=== PATIENT | female | born 1995 | race Caucasian/White ===

== ENCOUNTER 2021-04-26 14:41 | Emergency (ER) | payer SELFPAY ==
[~2021-04-26] VITALS: Ht 180.3 cm; Wt 52.1 kg
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
[2021-04-26 15:25] LABS: BASOPHILS % (AUTO) 0 % (0-10); EOSINOPHILS % (AUTO) 0 % (0-10); HEMATOCRIT 45 % (35-52); HEMOGLOBIN 15.1 g/dL (11.5-16.0); LYMPHOCYTES # (AUTO) 1.4 X 10^3 (1.0-4.0); LYMPHOCYTES % (AUTO) 15 % (12-44); MEAN CORPUSCULAR HEMOGLOBIN 30 pg (25-34); MEAN CORPUSCULAR HGB CONC 34 g/dL (32-36); MEAN CORPUSCULAR VOLUME 89 fL (80-99); MEAN PLATELET VOLUME 9.7 fL (9.0-12.2); MONOCYTES # (AUTO) 0.5 X 10^3 (0.0-1.0); MONOCYTES % (AUTO) 5 % (0-12); NEUTROPHILS # (AUTO) 7.6 X 10^3 (1.8-7.8); NEUTROPHILS % (AUTO) 80 % (42-75); PLATELET COUNT 232 10^3/uL (130-400); WHITE BLOOD COUNT 9.5 10^3/uL (4.3-11.0)
[2021-04-26 15:29] LABS: ALBUMIN 4.7 GM/DL (3.2-4.5); CHLORIDE 108 MMOL/L (98-107); SODIUM 141 MMOL/L (135-145)
[2021-04-26 15:30] LABS: CALCIUM 9.6 MG/DL (8.5-10.1)
[2021-04-26] MEDS ORDERED: NS IV 1000 ML 1,000 ML IV SCH (15:30)
[2021-04-26] MEDS ORDERED: ONDANSETRON 4 MG/2 ML (SDV) Z0FRAN IVP ONE (15:30)
[2021-04-26 15:31] LABS: GLUCOSE 81 MG/DL (70-105); TOTAL PROTEIN 7.8 GM/DL (6.4-8.2)
[2021-04-26 15:32] LABS: CARBON DIOXIDE 20 MMOL/L (21-32)
[2021-04-26 15:33] LABS: BILIRUBIN,TOTAL 1.6 MG/DL (0.1-1.0)
[2021-04-26 15:35] LABS: ALKALINE PHOSPHATASE 63 U/L (40-136); CREATININE SERUM 0.72 MG/DL (0.60-1.30); GFR ESTIMATED 99
[2021-04-26 15:36] LABS: BUN/CREATININE RATIO 13
[2021-04-26 15:38] LABS: ALANINE AMINOTRANSFERASE 22 U/L (0-55); LIPASE 36 U/L (8-78)
[2021-04-26 15:50] LABS: BILIRUBIN,URINE NEGATIVE (NEGATIVE); CLARITY,URINE CLEAR; COLOR,URINE YELLOW; GLUCOSE, URINE (UA) NEGATIVE (NEGATIVE); KETONES,URINE 1+ (NEGATIVE); LEUKOCYTE ESTERASE ,URINE TRACE (NEGATIVE); NITRITE,URINE NEGATIVE (NEGATIVE); PH,URINE 7.5 (5-9); PROTEIN,URINE NEGATIVE (NEGATIVE)
[2021-04-26 16:00] LABS: BACTERIA,URINE TRACE /HPF
--- NOTE | 2021-04-26 16:19 | Diagnostic Imaging Report ---
PROCEDURE: CT head and CT cervical spine without contrast. TECHNIQUE: Multiple contiguous axial images were obtained through the brain and cervical spine without the use of intravenous contrast. Sagittal and coronal reformations through the cervical spine were then performed. Auto Exposure Controls were utilized during the CT exam to meet ALARA standards for radiation dose reduction. DATE: April 26, 2021. COMPARISON: None. INDICATION: 26-year-old female, head and neck pain. Nausea. FINDINGS: There is no identified skull fracture. The ventricles and cerebral spinal fluid spaces are of normal size and configuration for the patient's age. There is no mass effect or midline shift. There is no acute intracranial hemorrhage. There is no abnormal extra-axial fluid collection. The visualized portions of the paranasal sinuses, mastoid air cells and middle ears are well aerated. There is no identified facet joint subluxation or dislocation. There is no asymmetric widening of the cervical disc spaces. The cervical disc heights are well preserved. CT is limited for assessment of disc pathology as well as additional nonbony causes of pathology in the spinal canal. There is no identified acute fracture of the cervical spine. The visualized portions of the lung apices are clear. IMPRESSION: 1. No identified acute intracranial abnormality. 2. No identified acute abnormality of the cervical spine. Dictated by: Dictated on workstation # [id number]
--- NOTE | 2021-04-26 16:22 | Diagnostic Imaging Report ---
PROCEDURE: CT thoracic spine without contrast. TECHNIQUE: Multiple axial computerized tomography images were obtained from the base of the thoracic spine to the vertex without intravenous contrast. Auto Exposure Controls were utilized during the CT exam to meet ALARA standards for radiation dose reduction. DATE: April 26, 2021. INDICATION: 26-year-old female, back pain. COMPARISON: None. FINDINGS: The alignment of the thoracic spine is unremarkable. There is no identified acute fracture of the thoracic spine. The thoracic disc heights are well preserved. CT is limited for assessment of disc pathology as well as additional non-bony causes of pathology in the spinal canal. The visualized portions of the lungs are clear. IMPRESSION: Unremarkable CT of the thoracic spine. Dictated by: Dictated on workstation # [id number]
[2021-04-26] MEDS ORDERED: KETOROLAC 30 MG/ML VIAL IVP ONE (16:30)
--- NOTE | 2021-04-26 16:37 | Diagnostic Imaging Report ---
INDICATION: Elbow pain. EXAMINATION: Three views were obtained. FINDINGS: The alignment is normal. There is no fracture or dislocation. Soft tissues are unremarkable. IMPRESSION: No acute fracture or dislocation. Dictated by: Dictated on workstation # [id number]
[2021-04-26] MEDS ORDERED: ONDA4TAB11 PO (16:45)
[2021-04-26 17:13] VITALS: BP 103/67
== END 2021-04-26 17:13 | disposition home or self-care (01) ==
LOC: ER 14:43
DX: R11.10 Vomiting, unspecified (principal); M54.6 Pain in thoracic spine; R10.84 Generalized abdominal pain; Z87.81 Personal history of (healed) traumatic fracture; Z32.02 Encounter for pregnancy test, result negative
CPT/HCPCS: 36415; 70450; 72125; 72128; 73080; 80053; 81000; 83690; 84703; 85025

== ENCOUNTER 2021-09-13 13:11 | Emergency (ER) | payer SELFPAY ==
[~2021-09-13] VITALS: Ht 180.3 cm; Wt 49.9 kg
[~2021-09-13 13:11] MED LIST: ONDA4TAB11 PO
--- NOTE | 2021-09-13 13:23 | ED GI ---
General Chief Complaint: Abdominal/GI Problems Stated Complaint: VOMITING/NAUSEA 7 WKS PREG History of Present Illness Date Seen by Provider: Sep 13, 2021 Time Seen by Provider: 13:22 Initial Comments 26-year-old female [id number], who is 7 weeks , with PMH of seizures and PCOS, is here with c/o nausea and vomiting which is severe for the past 2 to 3 days. Patient has been having nausea and vomiting since she found out she was but it has been worsening progressively over the past week. Patient is unable to keep any food down. Denies fever, abdominal pain, diarrhea, chest pain, shortness of breath. Patient feels tired. Patient is scheduled for an ultrasound tomorrow with her OB. Allergies and Home Medications Allergies Coded Allergies: No Known Drug Allergies (Unverified , 04/26/21) Patient Home Medication List Home Medication List Reviewed: Yes Ondansetron (Ondansetron Odt) 4 Mg Tab.rapdis, 4 MG PO TID PRN for NAUSEA/VOMITING-1ST LINE Prescribed by: INESSA GASTON on 04/26/21 7835 Review of Systems Review of Systems Constitutional: dizziness, malaise EENTM: No Symptoms Reported Respiratory: No Symptoms Reported Cardiovascular: No Symptoms Reported Gastrointestinal: Nausea, Poor Appetite, Poor Fluid Intake, Vomiting Genitourinary: No Symptoms Reported Musculoskeletal: no symptoms reported Skin: no symptoms reported Psychiatric/Neurological: No Symptoms Reported Endocrine: No Symptoms Reported Hematologic/Lymphatic: No Symptoms Reported Past Lkptkom-Pbrycr-Pnelmp Hx Patient Social History Tobacco Use?: No Smoking Status: Never a Smoker Smokeless Tobacco Frequency: Never a User Use of E-Cig and/or Vaping Patrick: Never a User Substance use?: No Alcohol Use?: No Pt feels they are or have been: No Physical Exam Vital Signs Vital Signs - First Documented 09/13/21 13:12 Temp 35.1 Pulse 67 Resp 18 B/P (MAP) 107/60 (76) Pulse Ox 100 O2 Delivery Room Air Capillary Refill : Height/Weight/BMI Height: '" Weight: lbs. oz. kg; 16.00 BMI Method: General Appearance: mild distress HEENT: PERRL/EOMI Neck: full range of motion Respiratory: lungs clear Cardiovascular: regular rate, rhythm Gastrointestinal: normal bowel sounds, non tender, soft, no organomegaly, no pulsatile mass Extremities: normal range of motion Back: normal inspection, no CVA tenderness Pelvic: normal external exam Neurologic/Psychiatric: no motor/sensory deficits, alert, normal mood/affect, oriented x 3 Progress/Results/Core Measures Results/Orders Lab Results Laboratory Tests Test 09/13/21 13:15 09/13/21 14:50 Range/Units White Blood Count 9.2 4.3-11.0 10^3/uL Red Blood Count 4.65 3.80-5.11 10^6/uL Hemoglobin 14.1 11.5-16.0 g/dL Hematocrit 40 35-52 % Mean Corpuscular Volume 87 80-99 fL Mean Corpuscular Hemoglobin 30 25-34 pg Mean Corpuscular Hemoglobin Concent 35 32-36 g/dL Red Cell Distribution Width 12.5 10.0-14.5 % Platelet Count 242 130-400 10^3/uL Mean Platelet Volume 9.8 9.0-12.2 fL Immature Granulocyte % (Auto) 0 % Neutrophils (%) (Auto) 73 42-75 % Lymphocytes (%) (Auto) 19 12-44 % Monocytes (%) (Auto) 7 0-12 % Eosinophils (%) (Auto) 0 0-10 % Basophils (%) (Auto) 0 0-10 % Neutrophils # (Auto) 6.7 1.8-7.8 10^3/uL Lymphocytes # (Auto) 1.7 1.0-4.0 10^3/uL Monocytes # (Auto) 0.7 0.0-1.0 10^3/uL Eosinophils # (Auto) 0.0 0.0-0.3 10^3/uL Basophils # (Auto) 0.0 0.0-0.1 10^3/uL Immature Granulocyte # (Auto) 0.0 0.0-0.1 10^3/uL Sodium Level 136 135-145 MMOL/L Potassium Level 3.9 3.6-5.0 MMOL/L Chloride Level 105 98-107 MMOL/L Carbon Dioxide Level 22 21-32 MMOL/L Anion Gap 9 5-14 MMOL/L Blood Urea Nitrogen 7 7-18 MG/DL Creatinine 0.67 0.60-1.30 MG/DL Estimat Glomerular Filtration Rate 124 BUN/Creatinine Ratio 10 Glucose Level 101 70-105 MG/DL Calcium Level 9.6 8.5-10.1 MG/DL Corrected Calcium 9.3 8.5-10.1 MG/DL Magnesium Level 1.9 1.6-2.4 MG/DL Total Bilirubin 1.8 H 0.1-1.0 MG/DL Aspartate Amino Transf (AST/SGOT) 20 5-34 U/L Alanine Aminotransferase (ALT/SGPT) 20 0-55 U/L Alkaline Phosphatase 64 40-136 U/L Total Protein 7.0 6.4-8.2 GM/DL Albumin 4.4 3.2-4.5 GM/DL Urine Color YELLOW Urine Clarity CLEAR Urine pH 6.5 5-9 Urine Specific [place] 1.010 L 1.016-1.022 Urine Protein NEGATIVE NEGATIVE Urine Glucose (UA) NEGATIVE NEGATIVE Urine Ketones 1+ H NEGATIVE Urine Nitrite NEGATIVE NEGATIVE Urine Bilirubin NEGATIVE NEGATIVE Urine Urobilinogen 0.2 < = 1.0 MG/DL Urine Leukocyte Esterase TRACE H NEGATIVE Urine RBC (Auto) NEGATIVE NEGATIVE Urine RBC 0-2 /HPF Urine WBC 10-25 H /HPF Urine Squamous Epithelial Cells 25-50 H /HPF Urine Crystals NONE /LPF Urine Bacteria MODERATE H /HPF Urine Casts NONE /LPF Urine Mucus LARGE H /LPF Urine Other NO /HPF Urine Culture Indicated NO My Orders Orders - ARNOLDO GARCIA MD Cbc With Automated Diff (09/13/21 13:29) Comprehensive Metabolic Panel (09/13/21 13:29) Magnesium (09/13/21 13:29) Ed Iv/Invasive Line Start (09/13/21 13:29) Ns Iv 1000 Ml (Sodium Chloride 0.9%) (09/13/21 13:30) Ondansetron Injection (Zofran Injectio (09/13/21 13:30) Diphenhydramine Injection (Benadryl Inje (09/13/21 13:29) Famotidine Injection (Pepcid Injection) (09/13/21 13:29) Urinalysis (09/13/21 14:44) Ed Iv/Invasive Line Start (09/13/21 15:02) Ns Iv 1000 Ml (Sodium Chloride 0.9%) (09/13/21 15:15) Acetaminophen Tablet/Caplet (Tylenol T (09/13/21 15:02) Promethazine Injection (Phenergan Injec (09/13/21 15:02) Cephalexin Capsule (Keflex Capsule) (09/13/21 16:25) Medications Given in ED Current Medications Medications Dose Ordered Sig/Dorota Route Start Time Stop Time Status Last Admin Dose Admin Ondansetron HCl 4 mg ONCE ONCE IVP 09/13/21 13:30 09/13/21 13:33 DC 09/13/21 13:48 4 MG Vital Signs/I&O 09/13/21 13:12 Temp 35.1 Pulse 67 Resp 18 B/P (MAP) 107/60 (76) Pulse Ox 100 O2 Delivery Room Air Progress Progress Note : Progress Note 1. HYPEREMESIS GRAVIDORUM/ DEHYDRATION: - CBC/ CMP unremarkable - NS IVF bolus x 2 - Zofran iv/ Benadryl 50mg iv / Pepcid 20mg iv STAT. Helped only a little so added Promethazine once only, Pt felt better with this combo and ws able to eat apple sauce, jello, and crackers -Advised 6 mini meals throughout the day, bland soft foods. - Patient has ultrasound scheduled tomorrow with her OB. . Follow-up with [facility] within the next 3 days. -Pyridoxine and doxylamine not available in the ER. Would recommend B complex or pyridoxine -Continue vitamins. -The patient was seen in the ED, and treated appropriately to presentation at a specific point in time. Patient is informed that there is a possibility that disease and illness can evolve and change in acuity rapidly or slowly after patient is discharged from the ER. Precautionary advice given to the patient for immediate return to ER if symptoms worsen or do not resolve, and to seek emergency care sooner rather than later. Pt also advised on the importance of PCP follow up and compliance with management and follow up plan with PCP and/or specialist, as this is part of the management plan. Pt verbally expressed understanding. 2. ACUTE CYSTITIS: - UA is positive for leukocyte esterase, bacteria. -Keflex 500 mg twice daily for 5 days with first tab stat in ER. -Adequate hydration advised. Departure Impression Primary Impression: Hyperemesis Additional Impressions: UTI (urinary tract infection) Qualified Codes: N39.0 - Urinary tract infection, site not specified Dehydration Disposition: HOME, SELF-CARE Condition: Improved Departure-Patient Inst. Referrals: NO,LOCAL PHYSICIAN (PCP/Family) Primary Care Physician Patient Instructions: Urinary Tract Infection, Adult ED, Dehydration, Adult (DC), Nausea and Vomiting of Add. Discharge Instructions: - Patient has ultrasound scheduled tomorrow with her OB. . Follow-up with [facility] within the next 3 days. -Continue vitamins. -The patient was seen in the ED, and treated appropriately to presentation at a specific point in time. Patient is informed that there is a possibility that disease and illness can evolve and change in acuity rapidly or slowly after patient is discharged from the ER. Precautionary advice given to the patient for immediate return to ER if symptoms worsen or do not resolve, and to seek emergency care sooner rather than later. Pt also advised on the importance of PCP follow up and compliance with management and follow up plan with PCP and/or specialist, as this is part of the management plan. Pt verbally expressed understanding. -Keflex 500 mg twice daily for 5 days with first tab stat in ER. -Adequate hydration advised. All discharge instructions reviewed with patient and/or family. Voiced understanding. ARNOLDO GARCIA MD Sep 13, 2021 13:22
[2021-09-13] MEDS ORDERED: diphenhydrAMINE 50 MG/ML INJ (BENADRYL) IVP STA (13:29)
[2021-09-13] MEDS ORDERED: FAMOTIDINE 20MG/2ML IV (PEPCID) IVP STA (13:29)
[2021-09-13] MEDS ORDERED: NS IV 1000 ML 1,000 ML IV SCH ×2 (13:30→15:15)
[2021-09-13] MEDS ORDERED: ONDANSETRON 4 MG/2 ML (SDV) Z0FRAN IVP ONE (13:30)
[2021-09-13 13:35] LABS: BASOPHILS % (AUTO) 0 % (0-10); EOSINOPHILS % (AUTO) 0 % (0-10); HEMATOCRIT 40 % (35-52); HEMOGLOBIN 14.1 g/dL (11.5-16.0); LYMPHOCYTES # (AUTO) 1.7 10^3/uL (1.0-4.0); LYMPHOCYTES % (AUTO) 19 % (12-44); MEAN CORPUSCULAR HEMOGLOBIN 30 pg (25-34); MEAN CORPUSCULAR HGB CONC 35 g/dL (32-36); MEAN CORPUSCULAR VOLUME 87 fL (80-99); MEAN PLATELET VOLUME 9.8 fL (9.0-12.2); MONOCYTES # (AUTO) 0.7 10^3/uL (0.0-1.0); MONOCYTES % (AUTO) 7 % (0-12); NEUTROPHILS # (AUTO) 6.7 10^3/uL (1.8-7.8); NEUTROPHILS % (AUTO) 73 % (42-75); PLATELET COUNT 242 10^3/uL (130-400); WHITE BLOOD COUNT 9.2 10^3/uL (4.3-11.0)
[2021-09-13 13:40] LABS: POTASSIUM 3.9 MMOL/L (3.6-5.0)
[2021-09-13 13:41] LABS: ALBUMIN 4.4 GM/DL (3.2-4.5); BILIRUBIN,TOTAL 1.8 MG/DL (0.1-1.0); CALCIUM 9.6 MG/DL (8.5-10.1); CREATININE SERUM 0.67 MG/DL (0.60-1.30); MAGNESIUM 1.9 MG/DL (1.6-2.4)
[2021-09-13] MEDS ORDERED: PROMETHAZINE INJ 25 MG/ML (PHENERGAN) AMP IVP STA (15:02)
[2021-09-13] MEDS ORDERED: ACETAMINOPHEN 325 MG TABLET PO STA (15:02)
[2021-09-13 15:07] LABS: BILIRUBIN,URINE NEGATIVE (NEGATIVE); CLARITY,URINE CLEAR; COLOR,URINE YELLOW; GLUCOSE, URINE (UA) NEGATIVE (NEGATIVE); KETONES,URINE 1+ (NEGATIVE); LEUKOCYTE ESTERASE ,URINE TRACE (NEGATIVE); NITRITE,URINE NEGATIVE (NEGATIVE); PH,URINE 6.5 (5-9); PROTEIN,URINE NEGATIVE (NEGATIVE)
[2021-09-13 15:20] LABS: BACTERIA,URINE MODERATE /HPF; RBC,URINE 0-2 /HPF; SQUAMOUS EPITHELIAL CELL,UR 25-50 /HPF; URINE OTHER NO /HPF
[2021-09-13] MEDS ORDERED: CEPHALEXIN 250 MG (KEFLEX) CAP PO STA (16:25)
[2021-09-13 16:45] VITALS: BP 111/86
== END 2021-09-13 16:45 | disposition home or self-care (01) ==
LOC: EDUNIT# 13:11 → ER FS 13:13
DX: O21.1 Hyperemesis gravidarum with metabolic disturbance (principal); O23.41 Unspecified infection of urinary tract in pregnancy, first trimester; Z3A.01 Less than 8 weeks gestation of pregnancy
CPT/HCPCS: 36415; 80053; 81000; 83735; 85025; 87088

== ENCOUNTER 2021-09-15 10:33 | Emergency (ER) | payer SELFPAY ==
[~2021-09-15] VITALS: Ht 180.3 cm; Wt 49.9 kg
--- NOTE | 2021-09-15 11:06 | ED General ---
General Chief Complaint: Abdominal/GI Problems Stated Complaint: VOMITING AND SYNCOPAL EPISODES Nursing Triage Note: PT AMBULATE TO ROOM FS06 WITH C/O N/V. PT STATES SHE STARTED VOMITING YESTERDAY AND "HAS NOT STOPPED". PT REPORTS SHE IS X8 WEEKS . PT REPORTS SHE HAS NOT TAKEN ANY ZOFRAN TODAY. Source of Information: Patient Exam Limitations: No Limitations History of Present Illness Date Seen by Provider: Sep 15, 2021 Time Seen by Provider: 10:41 Initial Comments 26yoF with PMH of PCOS that is roughly 8 weeks coming in due to nausea and nb/nb vomiting with abdominal discomfort. This has been going on since Tuesday when she came to the ER here. She was given antibiotics, zofran, and IV fluids. Now she feels similar to that time. Has not been eating and drinking well due to the nausea. Otherwise denying any other acute complaints. Had a formal ultrasound yesterday and her was normal and intrauterine. She did have an ovarian cyst on the left with a small amount of free fluid on that side. Denies vaginal discharge or bleeding. Allergies and Home Medications Allergies Coded Allergies: No Known Drug Allergies (Unverified , 04/26/21) Patient Home Medication List Home Medication List Reviewed: Yes Ondansetron (Ondansetron Odt) 4 Mg Tab.rapdis, 4 MG PO TID PRN for NAUSEA/VOMITING-1ST LINE Prescribed by: INESSA GASTON on 04/26/21 1645 Ondansetron (Ondansetron Odt) 4 Mg Tab.rapdis, 4 MG PO Q6H PRN for NAUSEA/VOMITING-1ST LINE Prescribed by: NICOL VOGEL on 09/15/21 1219 Promethazine HCl (Promethazine Tablet) 25 Mg Tablet, 25 MG PO Q6H PRN for NAUSEA/VOMITING-2ND LINE Prescribed by: NICOL VOGEL on 09/15/21 1219 Promethazine HCl (Promethazine Suppository) 25 Mg Supp.rect, 25 MG RC Q6H PRN for NAUSEA/VOMITING-3RD LINE Prescribed by: NICOL VOGEL on 09/15/21 1219 Review of Systems Review of Systems Constitutional: No chills, No fever EENTM: No blurred vision Respiratory: No cough Cardiovascular: No chest pain Gastrointestinal: abdominal pain; No diarrhea; nausea, vomiting Genitourinary: no symptoms reported Expected Date of Delivery: May 03, 2022 Musculoskeletal: no symptoms reported Skin: no symptoms reported Psychiatric/Neurological: No Symptoms Reported Hematologic/Lymphatic: No Symptoms Reported Immunological/Allergic: no symptoms reported All Other Systems Reviewed Negative Unless Noted: Yes Past Nmrdugk-Uogqmh-Kuenfz Hx Patient Social History Tobacco Use?: No Smoking Status: Never a Smoker Smokeless Tobacco Frequency: Never a User Use of E-Cig and/or Vaping dev: No Use of E-Cig and/or Vaping Patrick: Never a User Substance use?: No Alcohol Use?: No Pt feels they are or have been: No Past Medical History Expected Date of Delivery: May 03, 2022 Last Menstrual Period: Jul 29, 2021 Physical Exam Vital Signs Vital Signs - First Documented 09/15/21 09/15/21 10:39 12:37 Temp 37.0 Pulse 77 Resp 14 B/P (MAP) 108/65 (79) Pulse Ox 100 O2 Delivery Room Air Capillary Refill : Less Than 3 Seconds Height, Weight, BMI Height: '" Weight: lbs. oz. kg; 15.00 BMI Method: General Appearance: No Apparent Distress, WD/WN Eyes: Bilateral Eye Normal Inspection HEENT: PERRL/EOMI, Normal ENT Inspection, Pharynx Normal Neck: Full Range of Motion, Normal Inspection, Non Tender, Supple Respiratory: Chest Non Tender, Lungs Clear, Normal Breath Sounds, No Accessory Muscle Use, No Respiratory Distress Cardiovascular: Regular Rate, Rhythm, No Edema, Normal Peripheral Pulses Gastrointestinal: Normal Bowel Sounds, Non Tender, Soft; No Distended, No Guarding Back: Normal Inspection, No CVA Tenderness, No Vertebral Tenderness Extremity: Normal Capillary Refill, Normal Inspection, Normal Range of Motion, Non Tender, No Calf Tenderness Neurologic/Psychiatric: Alert, No Motor/Sensory Deficits, Normal Mood/Affect Skin: Normal Color, Warm/Dry Lymphatic: No Adenopathy Progress/Results/Core Measures Suspected Sepsis SIRS Temperature: Pulse: 77 Respiratory Rate: 14 Laboratory Tests 09/15/21 11:25: White Blood Count 7.0 Blood Pressure 108 /65 Mean: 79 Laboratory Tests 09/15/21 11:25: Creatinine 0.61, Platelet Count 219, Total Bilirubin 0.6 Results/Orders Lab Results Laboratory Tests Test 09/15/21 11:25 09/15/21 12:22 Range/Units White Blood Count 7.0 4.3-11.0 10^3/uL Red Blood Count 4.51 3.80-5.11 10^6/uL Hemoglobin 13.5 11.5-16.0 g/dL Hematocrit 39 35-52 % Mean Corpuscular Volume 87 80-99 fL Mean Corpuscular Hemoglobin 30 25-34 pg Mean Corpuscular Hemoglobin Concent 35 32-36 g/dL Red Cell Distribution Width 12.5 10.0-14.5 % Platelet Count 219 130-400 10^3/uL Mean Platelet Volume 9.7 9.0-12.2 fL Immature Granulocyte % (Auto) 0 % Neutrophils (%) (Auto) 72 42-75 % Lymphocytes (%) (Auto) 18 12-44 % Monocytes (%) (Auto) 9 0-12 % Eosinophils (%) (Auto) 1 0-10 % Basophils (%) (Auto) 0 0-10 % Neutrophils # (Auto) 5.0 1.8-7.8 10^3/uL Lymphocytes # (Auto) 1.3 1.0-4.0 10^3/uL Monocytes # (Auto) 0.6 0.0-1.0 10^3/uL Eosinophils # (Auto) 0.0 0.0-0.3 10^3/uL Basophils # (Auto) 0.0 0.0-0.1 10^3/uL Immature Granulocyte # (Auto) 0.0 0.0-0.1 10^3/uL Sodium Level 138 135-145 MMOL/L Potassium Level 3.9 3.6-5.0 MMOL/L Chloride Level 105 98-107 MMOL/L Carbon Dioxide Level 24 21-32 MMOL/L Anion Gap 9 5-14 MMOL/L Blood Urea Nitrogen 7 7-18 MG/DL Creatinine 0.61 0.60-1.30 MG/DL Estimat Glomerular Filtration Rate 127 BUN/Creatinine Ratio 11 Glucose Level 96 70-105 MG/DL Calcium Level 9.3 8.5-10.1 MG/DL Corrected Calcium 9.1 8.5-10.1 MG/DL Total Bilirubin 0.6 0.1-1.0 MG/DL Aspartate Amino Transf (AST/SGOT) 20 5-34 U/L Alanine Aminotransferase (ALT/SGPT) 21 0-55 U/L Alkaline Phosphatase 60 40-136 U/L Total Protein 6.6 6.4-8.2 GM/DL Albumin 4.2 3.2-4.5 GM/DL Lipase 51 8-78 U/L Urine Color YELLOW Urine Clarity CLEAR Urine pH 7.0 5-9 Urine Specific Maiden 1.010 L 1.016-1.022 Urine Protein NEGATIVE NEGATIVE Urine Glucose (UA) 3+ H NEGATIVE Urine Ketones NEGATIVE NEGATIVE Urine Nitrite NEGATIVE NEGATIVE Urine Bilirubin NEGATIVE NEGATIVE Urine Urobilinogen 0.2 < = 1.0 MG/DL Urine Leukocyte Esterase NEGATIVE NEGATIVE Urine RBC (Auto) NEGATIVE NEGATIVE Urine RBC NONE /HPF Urine WBC NONE /HPF Urine Squamous Epithelial Cells 0-2 /HPF Urine Crystals NONE /LPF Urine Bacteria NEGATIVE /HPF Urine Casts NONE /LPF Urine Mucus NEGATIVE /LPF Urine Culture Indicated NO My Orders Orders - NICOL VOGEL MD Cbc With Automated Diff (09/15/21 11:07) Comprehensive Metabolic Panel (09/15/21 11:07) Lipase (09/15/21 11:07) D5 Lr Iv Solution (Dextrose 5%/Lactated (09/15/21 11:07) Lactated Ringers (Lr 1000 Ml Iv Solution (09/15/21 11:07) Ondansetron Injection (Zofran Injectio (09/15/21 11:15) Famotidine Injection (Pepcid Injection) (09/15/21 11:15) Acetaminophen Tablet (Tylenol Tablet) (09/15/21 11:15) Promethazine Injection (Phenergan Injec (09/15/21 11:15) Ua Culture If Indicated (09/15/21 11:17) Ed Iv/Invasive Line Start (09/15/21 11:28) Medications Given in ED Current Medications Medications Dose Ordered Sig/Dorota Route Start Time Stop Time Status Last Admin Dose Admin Acetaminophen 1,000 mg ONCE ONCE PO 09/15/21 11:15 09/15/21 11:16 DC 09/15/21 11:19 1,000 MG Famotidine 20 mg ONCE ONCE IVP 09/15/21 11:15 09/15/21 11:16 DC 09/15/21 11:19 20 MG Ondansetron HCl 4 mg ONCE ONCE IVP 09/15/21 11:15 09/15/21 11:16 DC 09/15/21 11:19 4 MG Promethazine HCl 25 mg ONCE ONCE IVP 09/15/21 11:15 09/15/21 11:16 DC 09/15/21 11:19 25 MG Vital Signs/I&O 09/15/21 09/15/21 10:39 12:37 Temp 37.0 36.5 Pulse 77 72 Resp 14 15 B/P (MAP) 108/65 (79) 119/73 Pulse Ox 100 O2 Delivery Room Air Room Air Capillary Refill : Less Than 3 Seconds Blood Pressure Mean: 79 Progress Note : Progress Note 26-year-old female with above history coming in due to vomiting in setting of being . ABCs were intact and vitals were stable on presentation. Physical exam reassuring with a soft and nontender abdomen. Basic labs including electrolytes reassuring. She was given 2 L of IV fluids as well as Zofran followed by Phenergan. She is feeling better at this time. I will send her some more nausea medicines and have her follow-up with her OB as soon as possible. Unfortunately, her appointment was today, and she was not feeling well enough to go, so she will have to reschedule. POC ultrasound with HR in the 150's. I believe the patient is stable for discharge with outpatient follow-up. She was sent home with strict return precautions. Of note, she was diagnosed with a UTI during her last visit, she just filled the prescription for the Keflex yesterday and has not started taking it yet. We will send a repeat urine today for culture, but I instructed her to take the antibiotics. Departure Impression Primary Impression: Hyperemesis gravidarum Disposition: HOME, SELF-CARE Condition: Stable Departure-Patient Inst. Decision time for Depature: 12:30 Referrals: NO,LOCAL PHYSICIAN (PCP/Family) Primary Care Physician Patient Instructions: Hyperemesis Gravidarum Add. Discharge Instructions: Eat roughly 6 small meals per day, but mostly focus on fluids that have electrolytes and sugar such as Body Armor drinks or pedialyte. I recommend buying an [id number] B6 vitamin as well as doxylamine and taking those every day (cheaper to buy them separate instead of a prescription). Take the zofran as needed. If that is not working, I sent phenergan as a backup. If you cannot swallow the phenergan then I sent a suppository prescription for emergencies. Call your OB and try to schedule an appointment as soon as possible. Scripts Promethazine HCl (Promethazine Suppository) 25 Mg Supp.rect 25 MG RC Q6H PRN for NAUSEA/VOMITING-3RD LINE for 2 Days, #8 SUPP.RECT only use if you cannot swallow the oral promethazine. Do not take both at once Prov: NICOL VOGEL MD 09/15/21 Promethazine HCl (Promethazine Tablet) 25 Mg Tablet 25 MG PO Q6H PRN for NAUSEA/VOMITING-2ND LINE for 5 Days, #20 TAB Prov: NICOL VOGEL MD 09/15/21 Ondansetron (Ondansetron Odt) 4 Mg Tab.rapdis 4 MG PO Q6H PRN for NAUSEA/VOMITING-1ST LINE for 7 Days, #28 TAB Prov: NICOL VOGEL MD 09/15/21 Work/School Note: Work Release Form Date Seen in the Emergency Department: Sep 15, 2021 Return to Work: Sep 16, 2021 Restrictions: No Restrictions NICOL VOGEL MD Sep 15, 2021 11:06
[2021-09-15] MEDS ORDERED: LACTATED RINGERS 1,000 ML IV STA (11:07)
[2021-09-15] MEDS ORDERED: D5 LR IV SOLUTION 1,000 ML IV STA (11:07)
[2021-09-15] MEDS ORDERED: ACETAMINOPHEN 500 MG TAB (TYLENOL) PO ONE (11:15)
[2021-09-15] MEDS ORDERED: ONDANSETRON 4 MG/2 ML (SDV) Z0FRAN IVP ONE (11:15)
[2021-09-15] MEDS ORDERED: PROMETHAZINE INJ 25 MG/ML (PHENERGAN) AMP IVP ONE (11:15)
[2021-09-15] MEDS ORDERED: FAMOTIDINE 20MG/2ML IV (PEPCID) IVP ONE (11:15)
[2021-09-15 11:30] LABS: BASOPHILS % (AUTO) 0 % (0-10); EOSINOPHILS % (AUTO) 1 % (0-10); HEMATOCRIT 39 % (35-52); HEMOGLOBIN 13.5 g/dL (11.5-16.0); LYMPHOCYTES # (AUTO) 1.3 10^3/uL (1.0-4.0); LYMPHOCYTES % (AUTO) 18 % (12-44); MEAN CORPUSCULAR HEMOGLOBIN 30 pg (25-34); MEAN CORPUSCULAR HGB CONC 35 g/dL (32-36); MEAN CORPUSCULAR VOLUME 87 fL (80-99); MEAN PLATELET VOLUME 9.7 fL (9.0-12.2); MONOCYTES # (AUTO) 0.6 10^3/uL (0.0-1.0); MONOCYTES % (AUTO) 9 % (0-12); NEUTROPHILS % (AUTO) 72 % (42-75); PLATELET COUNT 219 10^3/uL (130-400)
[2021-09-15 11:53] LABS: BILIRUBIN,TOTAL 0.6 MG/DL (0.1-1.0); CALCIUM 9.3 MG/DL (8.5-10.1); CREATININE SERUM 0.61 MG/DL (0.60-1.30); POTASSIUM 3.9 MMOL/L (3.6-5.0); TOTAL PROTEIN 6.6 GM/DL (6.4-8.2)
[2021-09-15 11:54] LABS: ALBUMIN 4.2 GM/DL (3.2-4.5)
[2021-09-15] MEDS ORDERED: PROM25SU44 RC (12:19)
[2021-09-15] MEDS ORDERED: ONDA4TAB11 PO (12:19)
[2021-09-15] MEDS ORDERED: PROM25TA14 PO (12:19)
[2021-09-15 12:28] LABS: BILIRUBIN,URINE NEGATIVE (NEGATIVE); CLARITY,URINE CLEAR; COLOR,URINE YELLOW; GLUCOSE, URINE (UA) 3+ (NEGATIVE); KETONES,URINE NEGATIVE (NEGATIVE); LEUKOCYTE ESTERASE ,URINE NEGATIVE (NEGATIVE); NITRITE,URINE NEGATIVE (NEGATIVE); PROTEIN,URINE NEGATIVE (NEGATIVE)
[2021-09-15 12:37] VITALS: BP 119/73
[2021-09-15 12:37] LABS: BACTERIA,URINE NEGATIVE /HPF; SQUAMOUS EPITHELIAL CELL,UR 0-2 /HPF
== END 2021-09-15 12:37 | disposition home or self-care (01) ==
LOC: EDUNIT# 10:33 → ER FS 10:36
DX: O21.0 Mild hyperemesis gravidarum (principal); Z3A.08 8 weeks gestation of pregnancy
CPT/HCPCS: 36415; 80053; 81000; 83690; 85025

== ENCOUNTER 2021-09-17 18:18 | Observation (INO) | payer MEDICAID, OTHER ==
[~2021-09-17] VITALS: Ht 180.3 cm; Wt 49.9 kg
[~2021-09-17 18:18] MED LIST changes: +PROM25SU44 RC; +PROM25TA14 PO
[2021-09-17] MEDS ORDERED: FAMOTIDINE 20MG/2ML IV (PEPCID) IV STA (18:28)
[2021-09-17] MEDS ORDERED: PROMETHAZINE INJ 25 MG/ML (PHENERGAN) AMP IVP ONE (18:30)
[2021-09-17] MEDS ORDERED: D5 NS 1000 ML IV SOLUTION 1,000 ML IV ONE (18:30)
[2021-09-17] MEDS ORDERED: ONDANSETRON 4 MG/2 ML (SDV) Z0FRAN IVP ONE (18:30)
[2021-09-17] MEDS ORDERED: LACTATED RINGERS 1,000 ML IV STA (18:31)
--- NOTE | 2021-09-17 18:45 | ED GI ---
General Chief Complaint: Abdominal/GI Problems Stated Complaint: DEHYDRATED,VOMITTING Source of Information: Patient Exam Limitations: No Limitations History of Present Illness Date Seen by Provider: Sep 17, 2021 Time Seen by Provider: 18:21 Initial Comments 26yoF at roughly 8 WGA coming in due to continued vomiting. I saw this patient a couple days ago in the emergency department and she was diagnosed with hyperemesis gravidarum. She was given 2 L of IV fluids, basic labs unremarkable. She had been seen here prior to that was diagnosed with a UTI and hyperemesis gravidarum. She has been consistently using her nausea medications and has still vomited greater than 25 times today and is unable to keep anything down. She has been unable to get to her OB appointment in [place], so has not established care, but when she called them today they recommended going back to the ER for potential admission. She is having some abdominal cramping with the vomiting which is mild to moderate, better after she vomits. She is otherwise denying any other acute complaints Allergies and Home Medications Allergies Coded Allergies: No Known Drug Allergies (Unverified , 04/26/21) Patient Home Medication List Home Medication List Reviewed: Yes Ondansetron (Ondansetron Odt) 4 Mg Tab.rapdis, 4 MG PO TID PRN for NAUSEA/VOMITING-1ST LINE Prescribed by: INESSA GASTON on 04/26/21 1645 Ondansetron (Ondansetron Odt) 4 Mg Tab.rapdis, 4 MG PO Q6H PRN for NAUSEA/V OMITING-1ST LINE Prescribed by: NICOL VOGEL on 09/15/21 1219 Promethazine HCl (Promethazine Tablet) 25 Mg Tablet, 25 MG PO Q6H PRN for NAUSEA/VOMITING-2ND LINE Prescribed by: NICOL VOGEL on 09/15/21 1219 Promethazine HCl (Promethazine Suppository) 25 Mg Supp.rect, 25 MG RC Q6H PRN for NAUSEA/VOMITING-3RD LINE Prescribed by: NICOL VOGEL on 09/15/21 1219 Review of Systems Review of Systems Constitutional: No chills, No fever EENTM: No Blurred Vision Respiratory: Denies Cough Cardiovascular: Chest Pain Gastrointestinal: Nausea, Vomiting Genitourinary: No Symptoms Reported Musculoskeletal: no symptoms reported Skin: no symptoms reported Psychiatric/Neurological: No Symptoms Reported Endocrine: No Symptoms Reported Hematologic/Lymphatic: No Symptoms Reported All Other Systems Reviewed Negative Unless Noted: Yes Past Jdnyqev-Cxgpiu-Icuhpg Hx Patient Social History Tobacco Use?: No Past Medical History Surgery/Hospitalization HX: appendectomy and ioana Surgeries: Yes Appendectomy, Gallbladder Physical Exam Vital Signs Vital Signs - First Documented 09/17/21 19:03 Pulse 75 Resp 18 B/P (MAP) 104/71 Pulse Ox 100 O2 Delivery Room Air Capillary Refill : Height/Weight/BMI Height: '" Weight: lbs. oz. kg; 15.00 BMI Method: General Appearance: WD/WN, mild distress, other (leaning over emesis bag dry heaving) HEENT: PERRL/EOMI, normal ENT inspection, pharynx normal Neck: non-tender, full range of motion, supple, normal inspection Respiratory: chest non-tender, lungs clear, normal breath sounds, no respiratory distress, no accessory muscle use Cardiovascular: regular rate, rhythm, no edema, no murmur Gastrointestinal: normal bowel sounds, non tender, soft; No distended, No guarding, No rebound Extremities: normal range of motion, non-tender, normal inspection, no pedal edema, no calf tenderness, normal capillary refill Back: normal inspection, no CVA tenderness Neurologic/Psychiatric: no motor/sensory deficits, alert, normal mood/affect Skin: normal color, warm/dry Lymphatic: no adenopathy Progress/Results/Core Measures Results/Orders Lab Results Laboratory Tests Test 09/17/21 18:43 Range/Units White Blood Count 8.7 4.3-11.0 10^3/uL Red Blood Count 4.65 3.80-5.11 10^6/uL Hemoglobin 13.9 11.5-16.0 g/dL Hematocrit 40 35-52 % Mean Corpuscular Volume 87 80-99 fL Mean Corpuscular Hemoglobin 30 25-34 pg Mean Corpuscular Hemoglobin Concent 34 32-36 g/dL Red Cell Distribution Width 12.4 10.0-14.5 % Platelet Count 213 130-400 10^3/uL Mean Platelet Volume 9.5 9.0-12.2 fL Immature Granulocyte % (Auto) 0 % Neutrophils (%) (Auto) 68 42-75 % Lymphocytes (%) (Auto) 24 12-44 % Monocytes (%) (Auto) 8 0-12 % Eosinophils (%) (Auto) 1 0-10 % Basophils (%) (Auto) 0 0-10 % Neutrophils # (Auto) 5.9 1.8-7.8 10^3/uL Lymphocytes # (Auto) 2.1 1.0-4.0 10^3/uL Monocytes # (Auto) 0.7 0.0-1.0 10^3/uL Eosinophils # (Auto) 0.0 0.0-0.3 10^3/uL Basophils # (Auto) 0.0 0.0-0.1 10^3/uL Immature Granulocyte # (Auto) 0.0 0.0-0.1 10^3/uL Sodium Level 138 135-145 MMOL/L Potassium Level 4.1 3.6-5.0 MMOL/L Chloride Level 105 98-107 MMOL/L Carbon Dioxide Level 23 21-32 MMOL/L Anion Gap 10 5-14 MMOL/L Blood Urea Nitrogen 7 7-18 MG/DL Creatinine 0.59 L 0.60-1.30 MG/DL Estimat Glomerular Filtration Rate 128 BUN/Creatinine Ratio 12 Glucose Level 94 70-105 MG/DL Calcium Level 9.3 8.5-10.1 MG/DL Corrected Calcium 9.1 8.5-10.1 MG/DL Magnesium Level 2.1 1.6-2.4 MG/DL Total Bilirubin 0.8 0.1-1.0 MG/DL Aspartate Amino Transf (AST/SGOT) 22 5-34 U/L Alanine Aminotransferase (ALT/SGPT) 27 0-55 U/L Alkaline Phosphatase 59 40-136 U/L Troponin I < 0.30 <0.30 NG/ML Total Protein 7.0 6.4-8.2 GM/DL Albumin 4.3 3.2-4.5 GM/DL Lipase 52 8-78 U/L My Orders Orders - NICOL VOGEL MD Cbc With Automated Diff (09/17/21 18:28) Comprehensive Metabolic Panel (09/17/21 18:28) Lipase (09/17/21 18:28) Magnesium (09/17/21 18:28) Ua Culture If Indicated (09/17/21 18:28) Troponin I Fs (09/17/21 18:28) Ondansetron Injection (Zofran Injectio (09/17/21 18:30) Famotidine Injection (Pepcid Injection) (09/17/21 18:28) Ed Iv/Invasive Line Start (09/17/21 18:28) D5 Ns 1000 Ml Iv Solution (Dextrose 5%/0 (09/17/21 18:30) Ekg Tracing (09/17/21 18:28) Promethazine Injection (Phenergan Injec (09/17/21 18:30) Lactated Ringers (Lr 1000 Ml Iv Solution (09/17/21 18:31) Medications Given in ED Current Medications Medications Dose Ordered Sig/Dorota Route Start Time Stop Time Status Last Admin Dose Admin Dextrose/Sodium Chloride 1,000 ml @ 0 mls/hr Q0M ONCE IV 09/17/21 18:30 09/17/21 18:31 DC 09/17/21 18:52 0 MLS/HR Ondansetron HCl 4 mg ONCE ONCE IVP 09/17/21 18:30 09/17/21 18:31 DC 09/17/21 18:51 4 MG Promethazine HCl 25 mg ONCE ONCE IVP 09/17/21 18:30 09/17/21 18:31 DC 09/17/21 18:51 25 MG Vital Signs/I&O 09/17/21 19:03 Pulse 75 Resp 18 B/P (MAP) 104/71 Pulse Ox 100 O2 Delivery Room Air Progress Progress Note : Progress Note 26-year-old female with above history coming in due to persistent vomiting during . ABCs were intact and vitals were stable on presentation. Physical exam with reassuring abdominal exam. I did a [id number] ultrasound showing intrauterine with a heart rate around 150. An IV was placed and she was given 2 L of IV fluids as well as Zofran and Phenergan. Given this is her third ER visit in roughly 1 week, she is unable to tolerate p.o., I will admit her to the Dr. Burns, OB, for further evaluation and management. Initial ECG Impression Date: Sep 17, 2021 Initial ECG Impression Time: 18:36 Initial ECG Rate: 90 Initial ECG Rhythm: Normal Sinus Comment Narrow QRS, normal axis, no significant ST changes or T wave abnormalities Departure Impression Primary Impression: Hyperemesis gravidarum Disposition: 30 STILL A PATIENT Condition: Stable Admissions Decision to Admit/Date: Sep 17, 2021 Time/Decision to Admit Time: 19:00 Transfer Transfer Progress Notes Discussed with Dr. Burns, OB Transfer Facility: [facility] Method of Transfer: EMS Departure-Patient Inst. Referrals: NO,LOCAL PHYSICIAN (PCP/Family) Primary Care Physician NICOL VOGEL MD Sep 17, 2021 18:45
[2021-09-17 18:47] LABS: BASOPHILS % (AUTO) 0 % (0-10); EOSINOPHILS % (AUTO) 1 % (0-10); HEMATOCRIT 40 % (35-52); HEMOGLOBIN 13.9 g/dL (11.5-16.0); LYMPHOCYTES # (AUTO) 2.1 10^3/uL (1.0-4.0); LYMPHOCYTES % (AUTO) 24 % (12-44); MEAN CORPUSCULAR HEMOGLOBIN 30 pg (25-34); MEAN CORPUSCULAR HGB CONC 34 g/dL (32-36); MEAN CORPUSCULAR VOLUME 87 fL (80-99); MEAN PLATELET VOLUME 9.5 fL (9.0-12.2); MONOCYTES # (AUTO) 0.7 10^3/uL (0.0-1.0); MONOCYTES % (AUTO) 8 % (0-12); NEUTROPHILS # (AUTO) 5.9 10^3/uL (1.8-7.8); NEUTROPHILS % (AUTO) 68 % (42-75); PLATELET COUNT 213 10^3/uL (130-400); WHITE BLOOD COUNT 8.7 10^3/uL (4.3-11.0)
[2021-09-17 19:12] LABS: ALANINE AMINOTRANSFERASE 27 U/L (0-55); ALBUMIN 4.3 GM/DL (3.2-4.5); ALKALINE PHOSPHATASE 59 U/L (40-136); BILIRUBIN,TOTAL 0.8 MG/DL (0.1-1.0); BUN/CREATININE RATIO 12; CALCIUM 9.3 MG/DL (8.5-10.1); CARBON DIOXIDE 23 MMOL/L (21-32); CHLORIDE 105 MMOL/L (98-107); CREATININE SERUM 0.59 MG/DL (0.60-1.30); GFR ESTIMATED 128; GLUCOSE 94 MG/DL (70-105); LIPASE 52 U/L (8-78); MAGNESIUM 2.1 MG/DL (1.6-2.4); POTASSIUM 4.1 MMOL/L (3.6-5.0); SODIUM 138 MMOL/L (135-145)
[2021-09-17] MEDS ORDERED: LORazepam INJ 2 MG/ML (ATIVAN) VIAL IVP STA (19:26)
[2021-09-17 23:15] VITALS: BP 89/54
[2021-09-17] MEDS: D5 LR IV SOLUTION 1,000 ML IV SCH (23:53)
[2021-09-17] MEDS: METOCLOPRAMIDE INJ 10 MG/2 ML (REGLAN) IVP SCH (23:53)
[2021-09-17] MEDS: diphenhydrAMINE 50 MG/ML INJ (BENADRYL) IVP SCH (23:53)
[2021-09-18] MEDS: diphenhydrAMINE 50 MG/ML INJ (BENADRYL) IVP SCH (05:48)
[2021-09-18] MEDS: METOCLOPRAMIDE INJ 10 MG/2 ML (REGLAN) IVP SCH ×2 (05:48→14:37)
[2021-09-18 06:00] LABS: ALBUMIN 3.1 GM/DL (3.2-4.5); POTASSIUM 3.6 MMOL/L (3.6-5.0)
[2021-09-18 06:01] LABS: CALCIUM 8.1 MG/DL (8.5-10.1)
[2021-09-18 06:06] LABS: CREATININE SERUM 0.6 MG/DL (0.60-1.30); PHOSPHORUS 4.1 MG/DL (2.3-4.7)
[2021-09-18 06:09] LABS: MAGNESIUM 1.7 MG/DL (1.6-2.4)
[2021-09-18] MEDS: D5 LR IV SOLUTION 1,000 ML IV SCH ×2 (07:38→16:13)
[2021-09-18 07:39] VITALS: BP 92/54
[2021-09-18] MEDS ORDERED: FAMOTIDINE 20MG/2ML IV (PEPCID) IVP SCH (09:00)
[2021-09-18] MEDS ORDERED: METO-310 PO (11:16)
[2021-09-18] MEDS ORDERED: FAMO-119 PO (11:16)
[2021-09-18] MEDS ORDERED: DIPH25CA79 PO (11:16)
--- NOTE | 2021-09-18 11:16 | Discharge Inst-Simple/Standard ---
Discharge Inst-Standard Reconcile Patient Problems Problems Reviewed?: Yes Discharge Medications New, Converted or Re-Newed RX: Transmitted to Pharmacy Patient Instructions/Follow Up Plan of Care/Instructions/FU: Plans for close follow-up with [facility] on Tuesday. Activity as Tolerated: Yes Discharge Diet: No Restrictions ESTEBAN CASAS MD Sep 18, 2021 11:16
[2021-09-18] MEDS ORDERED: METOCLOPRAMIDE 10 MG (REGLAN) TAB ONE (11:36)
--- NOTE | 2021-09-18 11:44 | History & Physical-OB/GYN ---
History of Present Illness History of Present Illness Reason for visit/HPI Erin Eng is a 26 yo at 7w6d by 1st trimester US complete by her OBGYN in [place], who was sent from [place] ED on 09/17/2021 due to concerns for nausea and vomiting in . Of note, she has been the ED 3 times this week for unrelenting nausea, vomiting and dry heaving. She states that at home is spending hours on the toilet vomiting and has been waking up from her sleep e ither dry heaving or feeling nauseous. She has not been able to keep anything down regarding food or po fluids. She has used 4mg and 8mg of zofran ODT, along with phenergan 25mg suppositories without relief in her symptoms over the course of the week. Upon transfer to our hospital, it was noted that despite her symptoms, her labs did not demonstrate signs of dehydration as she had normal electrolytes and urine was negative for ketones. Overnight, she was received 10mg of IV reglan, 25mg of IV benadryl, 1mg of Ativan (in the ED), and 20mg of IV pepcid. She states that she was able to sleep overnight. She did wake up this morning with some dry heaving this morning, but overall she has had no vomiting. She was able to tolerate eggs and yogurt this morning for breakfast. She states that she has received her care thus far in [place], [place] (close to [place]). She travels to this clinic due to the fact that she is uninsured. [facility] will provide her with medical care despite her insurance status. She states that she called a number of practices in [place] and [place] and was informed that she could not be seen without insurance. She is unsure if she contacted [facility], however. She is open to transferring her care in this region if possible. Her is complicated by a h/o PCOS and seizures history. She states that she was receiving progesterone supplementation to assist with her given her PCOS history. This was prescribed by her OBGYN in [place]. She states that she is not currently on medication for seizures, but her last seizure was 2 years ago and is usually precipitated by significant pain. Her surgical history is remarkable for lap ioana and lap appendectomy. Date of Admission Sep 17, 2021 at 22:28 Date Seen by a Provider: Sep 18, 2021 Time Seen by a Provider: 10:00 I consulted on this patient on 09/18/21 11:20 Attending Physician Esteban Burns MD Admitting Physician No,Local Physician Consult Allergies and Home Medications Allergies Coded Allergies: No Known Drug Allergies (Unverified , 04/26/21) Patient Home Medication List Home Medication List Reviewed: Yes Diphenhydramine HCl (Benadryl) 25 Mg Capsule, 25 MG PO Q6H Prescribed by: Esteban Burns on 09/18/21 1116 Famotidine (Pepcid) 20 Mg Tablet, 20 MG PO BID Prescribed by: Esteban Burns on 09/18/21 1116 Metoclopramide HCl (Reglan) 10 Mg Tablet, 10 MG PO Q6H Prescribed by: Esteban Burns on 09/18/21 1116 Ondansetron (Ondansetron Odt) 4 Mg Tab.rapdis, 4 MG PO TID PRN for NAUSEA/VOMITING-1ST LINE Prescribed by: INESSA GASTON on 04/26/21 1645 Ondansetron (Ondansetron Odt) 4 Mg Tab.rapdis, 4 MG PO Q6H PRN for NAUSEA/VOMITING-1ST LINE Prescribed by: NICOL VOGEL on 09/15/21 1219 Promethazine HCl (Promethazine Tablet) 25 Mg Tablet, 25 MG PO Q6H PRN for NAUSEA/VOMITING-2ND LINE Prescribed by: NICOL VOGEL on 09/15/21 1219 Promethazine HCl (Promethazine Suppository) 25 Mg Supp.rect, 25 MG RC Q6H PRN for NAUSEA/VOMITING-3RD LINE Prescribed by: NICOL VOGEL on 09/15/21 1219 Past Tkqqtai-Ymdhjy-Escjax Hx Patient Social History Marrital Status: single Employed/Student: unemployed Smoking Status: Never a Smoker Surgeries Yes Appendectomy, Gallbladder Reproductive System Expected Date of Delivery: May 03, 2022 Hx : 1 Hx Para: 0 Hx Total # of Abortions (Spona: 0 Review of Systems Constitutional: see HPI, other (thin, mild distress) Gastrointestinal: abdominal pain, nausea Physical Exam Physical Exam Vital Signs Vital Signs Date Time Temp Pulse Resp B/P (MAP) Pulse Ox O2 Delivery O2 Flow Rate FiO2 09/18/21 07:39 36.0 69 18 92/54 (67) Room Air 09/17/21 23:15 36.0 62 16 100 Room Air 09/17/21 23:15 36.0 62 16 100 Room Air 09/17/21 23:15 36.0 62 16 89/54 (66) 100 Room Air 09/17/21 20:01 75 16 91/75 100 Room Air 09/17/21 19:37 75 18 95/65 100 Room Air 09/17/21 19:03 75 18 104/71 100 Room Air I & O 09/18/21 06:59 Intake Total 2000 ml Balance 2000 ml Capillary Refill : Less Than 3 Seconds Labs Laboratory Tests 09/17/21 18:43: White Blood Count 8.7, Red Blood Count 4.65, Hemoglobin 13.9, Hematocrit 40, Mean Corpuscular Volume 87, Mean Corpuscular Hemoglobin 30, Mean Corpuscular Hemoglobin Concent 34, Red Cell Distribution Width 12.4, Platelet Count 213, Mean Platelet Volume 9.5, Immature Granulocyte % (Auto) 0, Neutrophils (%) (Auto) 68, Lymphocytes (%) (Auto) 24, Monocytes (%) (Auto) 8, Eosinophils (%) (Auto) 1, Basophils (%) (Auto) 0, Neutrophils # (Auto) 5.9, Lymphocytes # (Auto) 2.1, Monocytes # (Auto) 0.7, Eosinophils # (Auto) 0.0, Basophils # (Auto) 0.0, Immature Granulocyte # (Auto) 0.0, Sodium Level 138, Potassium Level 4.1, Chloride Level 105, Carbon Dioxide Level 23, Anion Gap 10, Blood Urea Nitrogen 7, Creatinine 0.59L, Estimat Glomerular Filtration Rate 128, BUN/Creatinine Ratio 12, Glucose Level 94, Calcium Level 9.3, Corrected Calcium 9.1, Magnesium Level 2.1, Total Bilirubin 0.8, Aspartate Amino Transf (AST/SGOT) 22, Alanine Aminotransferase (ALT/SGPT) 27, Alkaline Phosphatase 59, Troponin I < 0.30, Total Protein 7.0, Albumin 4.3, Lipase 52 09/18/21 05:35: Sodium Level 138, Potassium Level 3.6, Chloride Level 109H, Carbon Dioxide Level 17L, Anion Gap 12, Blood Urea Nitrogen 5L, Creatinine 0.60, Estimat Glomerular Filtration Rate 128, BUN/Creatinine Ratio 8, Glucose Level 97, Calcium Level 8.1L, Corrected Calcium 8.8, Magnesium Level 1.7, Total Bilirubin 1.0, Aspartate Amino Transf (AST/SGOT) 16, Alanine Aminotransferase (ALT/SGPT) 21, Alkaline Phosphatase 40, Total Protein 5.0L, Albumin 3.1L, Phosphorus Level 4.1 General Appearance: Mild Distress Respiratory: Chest Non Tender, Lungs Clear, Normal Breath Sounds Cardiovascular: Regular Rate, Rhythm Abdominal: normal bowel sounds, non tender, soft Assessment/Plan Assessment and Plan O: VS - Last 72 Hours, by Label 09/17/21 09/17/21 09/17/21 09/17/21 19:03 19:37 20:01 23:15 Temp 36.0 Pulse 75 75 75 62 Resp 18 18 16 16 B/P (MAP) 104/71 95/65 91/75 89/54 (66) Pulse Ox 100 100 100 100 O2 Delivery Room Air Room Air Room Air Room Air 09/17/21 09/17/21 09/18/21 23:15 23:15 07:39 Temp 36.0 36.0 36.0 Pulse 62 62 69 Resp 16 16 18 B/P (MAP) 92/54 (67) Pulse Ox 100 100 O2 Delivery Room Air Room Air Room Air Laboratory Tests Test 09/17/21 18:43 09/18/21 05:35 Range/Units White Blood Count 8.7 4.3-11.0 10^3/uL Red Blood Count 4.65 3.80-5.11 10^6/uL Hemoglobin 13.9 11.5-16.0 g/dL Hematocrit 40 35-52 % Mean Corpuscular Volume 87 80-99 fL Mean Corpuscular Hemoglobin 30 25-34 pg Mean Corpuscular Hemoglobin Concent 34 32-36 g/dL Red Cell Distribution Width 12.4 10.0-14.5 % Platelet Count 213 130-400 10^3/uL Mean Platelet Volume 9.5 9.0-12.2 fL Immature Granulocyte % (Auto) 0 % Neutrophils (%) (Auto) 68 42-75 % Lymphocytes (%) (Auto) 24 12-44 % Monocytes (%) (Auto) 8 0-12 % Eosinophils (%) (Auto) 1 0-10 % Basophils (%) (Auto) 0 0-10 % Neutrophils # (Auto) 5.9 1.8-7.8 10^3/uL Lymphocytes # (Auto) 2.1 1.0-4.0 10^3/uL Monocytes # (Auto) 0.7 0.0-1.0 10^3/uL Eosinophils # (Auto) 0.0 0.0-0.3 10^3/uL Basophils # (Auto) 0.0 0.0-0.1 10^3/uL Immature Granulocyte # (Auto) 0.0 0.0-0.1 10^3/uL Sodium Level 138 138 135-145 MMOL/L Potassium Level 4.1 3.6 3.6-5.0 MMOL/L Chloride Level 105 109 H 98-107 MMOL/L Carbon Dioxide Level 23 17 L 21-32 MMOL/L Anion Gap 10 12 5-14 MMOL/L Blood Urea Nitrogen 7 5 L 7-18 MG/DL Creatinine 0.59 L 0.60 0.60-1.30 MG/DL Estimat Glomerular Filtration Rate 128 128 BUN/Creatinine Ratio 12 8 Glucose Level 94 97 70-105 MG/DL Calcium Level 9.3 8.1 L 8.5-10.1 MG/DL Corrected Calcium 9.1 8.8 8.5-10.1 MG/DL Magnesium Level 2.1 1.7 1.6-2.4 MG/DL Total Bilirubin 0.8 1.0 0.1-1.0 MG/DL Aspartate Amino Transf (AST/SGOT) 22 16 5-34 U/L Alanine Aminotransferase (ALT/SGPT) 27 21 0-55 U/L Alkaline Phosphatase 59 40 40-136 U/L Troponin I < 0.30 <0.30 NG/ML Total Protein 7.0 5.0 L 6.4-8.2 GM/DL Albumin 4.3 3.1 L 3.2-4.5 GM/DL Lipase 52 8-78 U/L Phosphorus Level 4.1 2.3-4.7 MG/DL A/P: Erin Eng is a 26 yo at 7w6d by 1st trimester US ([id number]) with nausea and vomiting in . # Nausea and vomiting in : IV reglan 10mg q6hrs scheduled, IV benadryl 25 mg q6hrs scheduled, and IV pepcid 20mg BID. IV phenergan 25mg q6hrs PRN. - Patient having improvement in her symptoms with regimen above. Was able to tolerate some breakfast this morning. Will move to oral medications and consider discharge this afternoon if patient remains without symptoms. Will also add B6 and unisom or benadryl to her regimen to aid with prevention. - Discussed in detail avoidance of spicy foods. Encouraged eating crackers immediately upon waking up in the morning and eating bland foods throughout the day. # Diet: Soft GI diet as tolerated. # care: Will completed an repeat TVUS to confirm IUP status. She is measuring 7w1d on US. Will keep original dates by LMP with due date of 05/03/2022 # Dispo: Will likely discharge home with plans for close follow-up with [facility] on Tuesday, pending continued improvement of symptoms with oral anti-emetics. Problems: (1) Nausea and vomiting during prior to 22 weeks gestation Admission Diagnosis Nausea and vomiting in Admission Status: Observation Diagnosis/Problems Diagnosis/Problems (1) 8 weeks gestation of ESTEBAN BURNS MD Sep 18, 2021 11:44
[2021-09-18] MEDS: METOCLOPRAMIDE 10 MG (REGLAN) TAB PO SCH ×2 (12:28→18:26)
[2021-09-18] MEDS: diphenhydrAMINE 25 MG TAB (BENADRYL) PO SCH ×2 (12:28→18:26)
--- NOTE | 2021-09-18 12:33 | Diagnostic Imaging Report ---
PROCEDURE: US OB SINGLE FETUS <14 WKS. TECHNIQUE: Multiple real-time grayscale images were obtained over the gravid uterus in various projections. INDICATION: Evaluate age. COMPARISON: None. FINDINGS: Live intrauterine gestation is visualized with a crown-rump length of 1.0 cm, consistent with a 7 weeks 1 day gestation. Yolk sac is visualized. heart tones measure 143 BPM. The gestational sac demonstrates normal contours with normal fluid. No sonographic abnormalities are seen within the uterus. The right ovary is visualized and has a normal appearance. No evidence of torsion or adnexal mass. The left ovary is not well seen due to overlying bowel gas. No mass is seen in the left adnexa. No free fluid is seen in the pelvis. IMPRESSION: 1. Single live intrauterine gestation measuring 7 weeks 1 day. This is within range of the clinical dates. Recommend continued follow-up, as indicated. Dictated by: Dictated on workstation # [id number]
[2021-09-18 12:54] VITALS: BP 117/71
[2021-09-18] MEDS: FAMOTIDINE 20MG/2ML IV (PEPCID) IVP SCH (14:31)
[2021-09-18 18:17] VITALS: BP 91/52
[2021-09-18] MEDS: FAMOTIDINE 20 MG (PEPCID) TABLET PO SCH (21:39)
[2021-09-18] MEDS: PROMETHAZINE INJ 25 MG/ML (PHENERGAN) AMP IVP PRN (21:40)
[2021-09-18 21:50] VITALS: BP 111/73
[2021-09-19 00:12] VITALS: BP 109/84
[2021-09-19] MEDS: METOCLOPRAMIDE 10 MG (REGLAN) TAB PO SCH ×4 (00:13→18:00)
[2021-09-19] MEDS: diphenhydrAMINE 25 MG TAB (BENADRYL) PO SCH ×4 (00:15→18:00)
[2021-09-19] MEDS: diphenhydrAMINE 50 MG/ML INJ (BENADRYL) IVP SCH ×5 (00:23→23:47)
[2021-09-19] MEDS: METOCLOPRAMIDE INJ 10 MG/2 ML (REGLAN) IVP SCH ×5 (00:24→23:47)
[2021-09-19] MEDS ORDERED: CALC500T7 PO (03:14)
[2021-09-19] MEDS ORDERED: PATIENT MAY USE OWN MEDS, ALL MC SCH (03:15)
[2021-09-19] MEDS ORDERED: CALCIUM CARBONATE 500 MG (TUMS) TAB.CHEW PO PRN (03:15)
[2021-09-19] MEDS: PROMETHAZINE INJ 25 MG/ML (PHENERGAN) AMP IVP PRN ×2 (03:46→14:11)
[2021-09-19] MEDS ORDERED: LORazepam INJ 2 MG/ML (ATIVAN) VIAL IVP ONE (07:00)
[2021-09-19] MEDS: FAMOTIDINE 20 MG (PEPCID) TABLET PO SCH ×3 (09:30→20:51)
[2021-09-19] MEDS: D5 LR IV SOLUTION 1,000 ML IV SCH ×3 (09:41→19:59)
[2021-09-19] MEDS: methylPREDNISolone 40 MG/ML (Solu-MEDROL) VIAL IV SCH ×3 (09:41→22:02)
[2021-09-19 09:53] VITALS: BP 102/59
[2021-09-19 10:08] LABS: BASOPHILS % (AUTO) 0 % (0-10); EOSINOPHILS % (AUTO) 1 % (0-10); HEMATOCRIT 36 % (35-52); HEMOGLOBIN 12.2 g/dL (11.5-16.0); LYMPHOCYTES # (AUTO) 1.6 10^3/uL (1.0-4.0); LYMPHOCYTES % (AUTO) 24 % (12-44); MEAN CORPUSCULAR HEMOGLOBIN 30 pg (25-34); MEAN CORPUSCULAR HGB CONC 34 g/dL (32-36); MEAN CORPUSCULAR VOLUME 89 fL (80-99); MEAN PLATELET VOLUME 9.9 fL (9.0-12.2); MONOCYTES # (AUTO) 0.6 10^3/uL (0.0-1.0); MONOCYTES % (AUTO) 9 % (0-12); NEUTROPHILS # (AUTO) 4.5 10^3/uL (1.8-7.8); NEUTROPHILS % (AUTO) 67 % (42-75); PLATELET COUNT 172 10^3/uL (130-400); WHITE BLOOD COUNT 6.8 10^3/uL (4.3-11.0)
[2021-09-19] MEDS: FAMOTIDINE 20MG/2ML IV (PEPCID) IVP SCH ×2 (10:08→20:51)
[2021-09-19 10:10] LABS: ALBUMIN 3.4 GM/DL (3.2-4.5); POTASSIUM 3.6 MMOL/L (3.6-5.0)
[2021-09-19 10:11] LABS: CALCIUM 8.5 MG/DL (8.5-10.1)
[2021-09-19 10:13] LABS: TOTAL PROTEIN 5.6 GM/DL (6.4-8.2)
[2021-09-19 10:16] LABS: CREATININE SERUM 0.63 MG/DL (0.60-1.30); PHOSPHORUS 3.4 MG/DL (2.3-4.7)
[2021-09-19 10:19] LABS: MAGNESIUM 1.6 MG/DL (1.6-2.4)
--- NOTE | 2021-09-19 10:50 | Progress Note ---
Standard Progress Note Progress Notes/Assess & Plan Date Seen by a Provider: Sep 19, 2021 Time Seen by a Provider: 10:42 Progress/Assessment & Plan S: Patient was seen at the bedside. She is resting quietly. Overnight she had several episodes of emesis despite IV reglan administration and require IV phenergan and IV ativan with some control of her symptoms. She has been resting since recieving ativan this morning. Denies fever, chills, diarrhea or constipation. She did have some complaints of chest pain, feeling as though something is sitting on her chest. EKG was completed on yesterday and appeared normal. May consider getting imaging today to rule out aspiration of some kind. Though her pain may be related to forceful dry heaving and acid reflux. O: VS - Last 72 Hours, by Label 09/17/21 09/17/21 09/17/21 09/17/21 19:03 19:37 20:01 23:15 Temp 36.0 Pulse 75 75 75 62 Resp 18 18 16 16 B/P (MAP) 104/71 95/65 91/75 89/54 (66) Pulse Ox 100 100 100 100 O2 Delivery Room Air Room Air Room Air Room Air 09/17/21 09/17/21 09/18/21 09/18/21 23:15 23:15 07:39 12:54 Temp 36.0 36.0 36.0 36.9 Pulse 62 62 69 102 Resp 16 16 18 16 B/P (MAP) 92/54 (67) 117/71 (86) Pulse Ox 100 100 100 O2 Delivery Room Air Room Air Room Air Room Air 09/18/21 09/18/21 09/19/21 18:17 21:50 00:12 Temp 36.7 36.8 36.8 Pulse 79 84 80 Resp 16 16 16 B/P (MAP) 91/52 (65) 111/73 (86) 109/84 (92) Pulse Ox 100 99 98 O2 Delivery Room Air Room Air Room Air Laboratory Tests Test 09/19/21 09:52 Range/Units White Blood Count 6.8 4.3-11.0 10^3/uL Red Blood Count 4.03 3.80-5.11 10^6/uL Hemoglobin 12.2 11.5-16.0 g/dL Hematocrit 36 35-52 % Mean Corpuscular Volume 89 80-99 fL Mean Corpuscular Hemoglobin 30 25-34 pg Mean Corpuscular Hemoglobin Concent 34 32-36 g/dL Red Cell Distribution Width 12.2 10.0-14.5 % Platelet Count 172 130-400 10^3/uL Mean Platelet Volume 9.9 9.0-12.2 fL Immature Granulocyte % (Auto) 0 % Neutrophils (%) (Auto) 67 42-75 % Lymphocytes (%) (Auto) 24 12-44 % Monocytes (%) (Auto) 9 0-12 % Eosinophils (%) (Auto) 1 0-10 % Basophils (%) (Auto) 0 0-10 % Neutrophils # (Auto) 4.5 1.8-7.8 10^3/uL Lymphocytes # (Auto) 1.6 1.0-4.0 10^3/uL Monocytes # (Auto) 0.6 0.0-1.0 10^3/uL Eosinophils # (Auto) 0.0 0.0-0.3 10^3/uL Basophils # (Auto) 0.0 0.0-0.1 10^3/uL Immature Granulocyte # (Auto) 0.0 0.0-0.1 10^3/uL Sodium Level 136 135-145 MMOL/L Potassium Level 3.6 3.6-5.0 MMOL/L Chloride Level 108 H 98-107 MMOL/L Carbon Dioxide Level 19 L 21-32 MMOL/L Anion Gap 9 5-14 MMOL/L Blood Urea Nitrogen 4 L 7-18 MG/DL Creatinine 0.63 0.60-1.30 MG/DL Estimat Glomerular Filtration Rate 126 BUN/Creatinine Ratio 6 Glucose Level 96 70-105 MG/DL Calcium Level 8.5 8.5-10.1 MG/DL Corrected Calcium 9.0 8.5-10.1 MG/DL Phosphorus Level 3.4 2.3-4.7 MG/DL Magnesium Level 1.6 1.6-2.4 MG/DL Total Bilirubin 1.0 0.1-1.0 MG/DL Aspartate Amino Transf (AST/SGOT) 16 5-34 U/L Alanine Aminotransferase (ALT/SGPT) 24 0-55 U/L Alkaline Phosphatase 43 40-136 U/L Total Protein 5.6 L 6.4-8.2 GM/DL Albumin 3.4 3.2-4.5 GM/DL A/P: 26 yo at 8w0d by LMP consistent with 1st trimester US, admitted with hyperemesis gravidarum.. # Hyperemesis Gravidarum: Patient has not been able to tolerate po anti-emetics and has had multiple episodes of emesis overnight. Plans were made to keep in house and start steroid therapy for her symptoms. Her bloodwork still demonstrates no signs of dehydration despite her symptoms. - IV Reglan 10mg q6hrs scheduled, IV benadryl 25mg q6hrs scheduled, IV phenergan 25mg q6hrs PRN, IV pepcid 20mg BID, po tums PRN. Started Methylprednisolone 16mg q8hrs with plans to continue for 3 days followed by steroid taper upon discharge. Will monitor for improvement of symptoms. - Daily labs (CBC, CMP, Mag, Phos) # Diet: Soft GI diet as tolerated. # DVT ppx: SCDs in place when in bed. # Dispo: pending improvement. Final Diagnosis Hyperemesis Gravidarum Diagnosis/Problems Diagnosis/Problems (1) 8 weeks gestation of ESTEBAN CASAS MD Sep 19, 2021 10:50
[2021-09-19] MEDS: FOLIC ACID INJECTION 1 MG in NS (IVPB) 50 ML IV SCH (11:22)
[2021-09-19] MEDS: MULTIVITAMINS LIQUID 15 ML UDC PO SCH (11:24)
[2021-09-19 13:50] VITALS: BP 103/62
--- NOTE | 2021-09-19 15:19 | Diagnostic Imaging Report ---
EXAMINATION: Chest 2 view. HISTORY: Possible aspiration. COMPARISON: None available. FINDINGS: The lungs are clear without edema or pneumonia. No pleural effusion or pneumothorax. Heart size is normal. IMPRESSION: Clear lungs. Dictated by: Dictated on workstation # [id number]
[2021-09-19 16:10] VITALS: BP 112/66
[2021-09-19 20:00] VITALS: BP 100/61
[2021-09-20] VITALS (7 sets, daily range): BP systolic 98–118; BP diastolic 55–77
[2021-09-20] MEDS: METOCLOPRAMIDE 10 MG (REGLAN) TAB PO SCH ×4 (00:21→18:00)
[2021-09-20] MEDS: diphenhydrAMINE 25 MG TAB (BENADRYL) PO SCH ×4 (00:21→18:00)
[2021-09-20] MEDS: D5 LR IV SOLUTION 1,000 ML IV SCH ×3 (04:52→12:37)
[2021-09-20 05:21] LABS: BASOPHILS % (AUTO) 0 % (0-10); EOSINOPHILS % (AUTO) 0 % (0-10); HEMATOCRIT 35 % (35-52); HEMOGLOBIN 11.8 g/dL (11.5-16.0); LYMPHOCYTES # (AUTO) 1.3 10^3/uL (1.0-4.0); LYMPHOCYTES % (AUTO) 11 % (12-44); MEAN CORPUSCULAR HEMOGLOBIN 30 pg (25-34); MEAN CORPUSCULAR HGB CONC 34 g/dL (32-36); MEAN CORPUSCULAR VOLUME 89 fL (80-99); MEAN PLATELET VOLUME 10.2 fL (9.0-12.2); MONOCYTES # (AUTO) 0.6 10^3/uL (0.0-1.0); MONOCYTES % (AUTO) 5 % (0-12); NEUTROPHILS # (AUTO) 9.5 10^3/uL (1.8-7.8); NEUTROPHILS % (AUTO) 82 % (42-75); PLATELET COUNT 198 10^3/uL (130-400); WHITE BLOOD COUNT 11.5 10^3/uL (4.3-11.0)
[2021-09-20 05:34] LABS: ALBUMIN 3.4 GM/DL (3.2-4.5); POTASSIUM 3.8 MMOL/L (3.6-5.0)
[2021-09-20 05:35] LABS: CALCIUM 8.2 MG/DL (8.5-10.1)
[2021-09-20 05:36] LABS: TOTAL PROTEIN 5.5 GM/DL (6.4-8.2)
[2021-09-20 05:38] LABS: BILIRUBIN,TOTAL 0.7 MG/DL (0.1-1.0)
[2021-09-20 05:40] LABS: CREATININE SERUM 0.61 MG/DL (0.60-1.30)
[2021-09-20 05:43] LABS: MAGNESIUM 1.6 MG/DL (1.6-2.4)
[2021-09-20] MEDS: METOCLOPRAMIDE INJ 10 MG/2 ML (REGLAN) IVP SCH ×4 (06:15→23:06)
[2021-09-20] MEDS: diphenhydrAMINE 50 MG/ML INJ (BENADRYL) IVP SCH ×4 (06:15→23:06)
[2021-09-20] MEDS: methylPREDNISolone 40 MG/ML (Solu-MEDROL) VIAL IV SCH ×3 (06:15→22:04)
--- NOTE | 2021-09-20 08:51 | Progress Note ---
Standard Progress Note Progress Notes/Assess & Plan Date Seen by a Provider: September 20, 2021 Time Seen by a Provider: 08:48 Progress/Assessment & Plan S: Patient was seen at the bedside. She is resting quietly, but was able to answer my questions this morning. She states that last night she was able to eat some pizza and denies feeling nauseous this morning. Denies fever, chills, diarrhea or constipation. O: VS - Last 72 Hours, by Label 09/17/21 09/17/21 09/17/21 09/17/21 19:03 19:37 20:01 23:15 Temp 36.0 Pulse 75 75 75 62 Resp 18 18 16 16 B/P (MAP) 104/71 95/65 91/75 89/54 (66) Pulse Ox 100 100 100 100 O2 Delivery Room Air Room Air Room Air Room Air 09/17/21 09/17/21 09/18/21 09/18/21 23:15 23:15 07:39 12:54 Temp 36.0 36.0 36.0 36.9 Pulse 62 62 69 102 Resp 16 16 18 16 B/P (MAP) 92/54 (67) 117/71 (86) Pulse Ox 100 100 100 O2 Delivery Room Air Room Air Room Air Room Air 09/18/21 09/18/21 09/19/21 09/19/21 18:17 21:50 00:12 09:50 Temp 36.7 36.8 36.8 Pulse 79 84 80 Resp 16 16 16 B/P (MAP) 91/52 (65) 111/73 (86) 109/84 (92) Pulse Ox 100 99 98 O2 Delivery Room Air Room Air Room Air Room Air 09/19/21 09/19/21 09/19/21 09/19/21 09:53 13:50 16:10 20:00 Temp 36.5 36.8 36.9 37.0 Pulse 71 100 70 90 Resp 16 16 16 18 B/P (MAP) 102/59 (73) 103/62 (76) 112/66 (81) 100/61 (74) Pulse Ox 99 98 100 100 O2 Delivery Room Air Room Air Room Air Room Air 09/19/21 09/20/21 09/20/21 20:00 00:00 04:30 Temp 36.7 36.0 Pulse 60 65 Resp 18 18 B/P (MAP) 105/59 (74) 98/55 (69) Pulse Ox 99 98 O2 Delivery Room Air Room Air Room Air Laboratory Tests Test 09/19/21 09:52 09/20/21 05:02 Range/Units White Blood Count 6.8 11.5 H 4.3-11.0 10^3/uL Red Blood Count 4.03 3.88 3.80-5.11 10^6/uL Hemoglobin 12.2 11.8 11.5-16.0 g/dL Hematocrit 36 35 35-52 % Mean Corpuscular Volume 89 89 80-99 fL Mean Corpuscular Hemoglobin 30 30 25-34 pg Mean Corpuscular Hemoglobin Concent 34 34 32-36 g/dL Red Cell Distribution Width 12.2 12.1 10.0-14.5 % Platelet Count 172 198 130-400 10^3/uL Mean Platelet Volume 9.9 10.2 9.0-12.2 fL Immature Granulocyte % (Auto) 0 1 % Neutrophils (%) (Auto) 67 82 H 42-75 % Lymphocytes (%) (Auto) 24 11 L 12-44 % Monocytes (%) (Auto) 9 5 0-12 % Eosinophils (%) (Auto) 1 0 0-10 % Basophils (%) (Auto) 0 0 0-10 % Neutrophils # (Auto) 4.5 9.5 H 1.8-7.8 10^3/uL Lymphocytes # (Auto) 1.6 1.3 1.0-4.0 10^3/uL Monocytes # (Auto) 0.6 0.6 0.0-1.0 10^3/uL Eosinophils # (Auto) 0.0 0.0 0.0-0.3 10^3/uL Basophils # (Auto) 0.0 0.0 0.0-0.1 10^3/uL Immature Granulocyte # (Auto) 0.0 0.1 0.0-0.1 10^3/uL Sodium Level 136 136 135-145 MMOL/L Potassium Level 3.6 3.8 3.6-5.0 MMOL/L Chloride Level 108 H 108 H 98-107 MMOL/L Carbon Dioxide Level 19 L 17 L 21-32 MMOL/L Anion Gap 9 11 5-14 MMOL/L Blood Urea Nitrogen 4 L 6 L 7-18 MG/DL Creatinine 0.63 0.61 0.60-1.30 MG/DL Estimat Glomerular Filtration Rate 126 127 BUN/Creatinine Ratio 6 10 Glucose Level 96 127 H 70-105 MG/DL Calcium Level 8.5 8.2 L 8.5-10.1 MG/DL Corrected Calcium 9.0 8.7 8.5-10.1 MG/DL Phosphorus Level 3.4 2.3-4.7 MG/DL Magnesium Level 1.6 1.6 1.6-2.4 MG/DL Total Bilirubin 1.0 0.7 0.1-1.0 MG/DL Aspartate Amino Transf (AST/SGOT) 16 23 5-34 U/L Alanine Aminotransferase (ALT/SGPT) 24 36 0-55 U/L Alkaline Phosphatase 43 44 40-136 U/L Total Protein 5.6 L 5.5 L 6.4-8.2 GM/DL Albumin 3.4 3.4 3.2-4.5 GM/DL A/P: 26 yo at 8w1d by LMP consistent with 1st trimester US, admitted with hyperemesis gravidarum.. # Hyperemesis Gravidarum: Patient's symptoms are improved after starting Methylprednisolone treatment. Will continue current regimen. - IV Reglan 10mg q6hrs scheduled, IV benadryl 25mg q6hrs scheduled, IV phenergan 25mg q6hrs PRN, IV pepcid 20mg BID, po tums PRN. Started Methylprednisolone 16mg q8hrs with plans to continue for 3 days followed by steroid taper upon discharge. Will monitor for improvement of symptoms. - Daily labs (CBC, CMP, Mag, Phos) # Chest pain: Patient has had complaints of chest pain since admission. She has had a negative EKG and CXR. Her chest pain is likely due to persistent dry heaving and vomiting. She does have tums and pepid ordered. # Diet: Soft GI diet as tolerated. # DVT ppx: SCDs in place when in bed. # Dispo: pending improvement. Final Diagnosis Hyperemesis Gravidarum Diagnosis/Problems Diagnosis/Problems (1) 8 weeks gestation of ESTEBAN CASAS MD September 20, 2021 08:51
[2021-09-20] MEDS ORDERED: NF-METHYLP PO (09:07)
[2021-09-20] MEDS: FOLIC ACID INJECTION 1 MG in NS (IVPB) 50 ML IV SCH (10:05)
[2021-09-20] MEDS: FAMOTIDINE 20MG/2ML IV (PEPCID) IVP SCH ×2 (10:05→20:52)
[2021-09-20] MEDS: FAMOTIDINE 20 MG (PEPCID) TABLET PO SCH ×2 (10:05→20:51)
[2021-09-20] MEDS: MULTIVITAMINS LIQUID 15 ML UDC PO SCH (10:05)
[2021-09-20] MEDS: PROMETHAZINE INJ 25 MG/ML (PHENERGAN) AMP IVP PRN (19:01)
[2021-09-20] MEDS ORDERED: BISACODYL 10 MG SUPP (DULCOLAX) PR ONE (23:30)
[2021-09-21] MEDS: diphenhydrAMINE 25 MG TAB (BENADRYL) PO SCH ×3 (00:01→12:01)
[2021-09-21] MEDS: METOCLOPRAMIDE 10 MG (REGLAN) TAB PO SCH ×4 (00:02→17:40)
[2021-09-21] MEDS: D5 LR IV SOLUTION 1,000 ML IV SCH ×3 (04:11→08:16)
[2021-09-21] MEDS: METOCLOPRAMIDE INJ 10 MG/2 ML (REGLAN) IVP SCH ×2 (05:47→12:00)
[2021-09-21] MEDS: diphenhydrAMINE 50 MG/ML INJ (BENADRYL) IVP SCH ×2 (05:48→11:49)
[2021-09-21] MEDS: methylPREDNISolone 40 MG/ML (Solu-MEDROL) VIAL IV SCH ×2 (05:48→14:15)
[2021-09-21 05:50] LABS: BASOPHILS % (AUTO) 0 % (0-10); EOSINOPHILS % (AUTO) 0 % (0-10); HEMATOCRIT 35 % (35-52); LYMPHOCYTES % (AUTO) 15 % (12-44); MEAN CORPUSCULAR HEMOGLOBIN 31 pg (25-34); MEAN CORPUSCULAR HGB CONC 35 g/dL (32-36); MEAN CORPUSCULAR VOLUME 89 fL (80-99); MEAN PLATELET VOLUME 10.3 fL (9.0-12.2); MONOCYTES # (AUTO) 0.7 10^3/uL (0.0-1.0); MONOCYTES % (AUTO) 6 % (0-12); NEUTROPHILS # (AUTO) 10.4 10^3/uL (1.8-7.8); NEUTROPHILS % (AUTO) 79 % (42-75); PLATELET COUNT 223 10^3/uL (130-400); WHITE BLOOD COUNT 13.2 10^3/uL (4.3-11.0)
[2021-09-21 06:00] VITALS: BP 97/53
[2021-09-21 06:02] LABS: ALBUMIN 3.5 GM/DL (3.2-4.5)
[2021-09-21 06:03] LABS: POTASSIUM 3.7 MMOL/L (3.6-5.0)
[2021-09-21 06:04] LABS: CALCIUM 8.3 MG/DL (8.5-10.1)
[2021-09-21 06:05] LABS: TOTAL PROTEIN 5.7 GM/DL (6.4-8.2)
[2021-09-21 06:07] LABS: BILIRUBIN,TOTAL 0.4 MG/DL (0.1-1.0)
[2021-09-21 06:09] LABS: CREATININE SERUM 0.6 MG/DL (0.60-1.30)
[2021-09-21 06:11] LABS: MAGNESIUM 1.7 MG/DL (1.6-2.4)
[2021-09-21] MEDS: MULTIVITAMINS LIQUID 15 ML UDC PO SCH (07:00)
[2021-09-21] MEDS: PROMETHAZINE INJ 25 MG/ML (PHENERGAN) AMP IVP PRN ×2 (08:17→13:48)
--- NOTE | 2021-09-21 09:40 | Progress Note ---
Standard Progress Note Progress Notes/Assess & Plan Date Seen by a Provider: September 21, 2021 Time Seen by a Provider: 08:45 Progress/Assessment & Plan Patient still weak this morning, but reports having a good morning so far. Has not thrown up since yesterday. Laboratory Tests Test 09/21/21 05:31 Range/Units White Blood Count 13.2 H 4.3-11.0 10^3/uL Red Blood Count 3.87 3.80-5.11 10^6/uL Hemoglobin 12.0 11.5-16.0 g/dL Hematocrit 35 35-52 % Mean Corpuscular Volume 89 80-99 fL Mean Corpuscular Hemoglobin 31 25-34 pg Mean Corpuscular Hemoglobin Concent 35 32-36 g/dL Red Cell Distribution Width 12.5 10.0-14.5 % Platelet Count 223 130-400 10^3/uL Mean Platelet Volume 10.3 9.0-12.2 fL Immature Granulocyte % (Auto) 1 % Neutrophils (%) (Auto) 79 H 42-75 % Lymphocytes (%) (Auto) 15 12-44 % Monocytes (%) (Auto) 6 0-12 % Eosinophils (%) (Auto) 0 0-10 % Basophils (%) (Auto) 0 0-10 % Neutrophils # (Auto) 10.4 H 1.8-7.8 10^3/uL Lymphocytes # (Auto) 2.0 1.0-4.0 10^3/uL Monocytes # (Auto) 0.7 0.0-1.0 10^3/uL Eosinophils # (Auto) 0.0 0.0-0.3 10^3/uL Basophils # (Auto) 0.0 0.0-0.1 10^3/uL Immature Granulocyte # (Auto) 0.1 0.0-0.1 10^3/uL Sodium Level 138 135-145 MMOL/L Potassium Level 3.7 3.6-5.0 MMOL/L Chloride Level 107 98-107 MMOL/L Carbon Dioxide Level 19 L 21-32 MMOL/L Anion Gap 12 5-14 MMOL/L Blood Urea Nitrogen 8 7-18 MG/DL Creatinine 0.60 0.60-1.30 MG/DL Estimat Glomerular Filtration Rate 128 BUN/Creatinine Ratio 13 Glucose Level 116 H 70-105 MG/DL Calcium Level 8.3 L 8.5-10.1 MG/DL Corrected Calcium 8.7 8.5-10.1 MG/DL Magnesium Level 1.7 1.6-2.4 MG/DL Total Bilirubin 0.4 0.1-1.0 MG/DL Aspartate Amino Transf (AST/SGOT) 15 5-34 U/L Alanine Aminotransferase (ALT/SGPT) 31 0-55 U/L Alkaline Phosphatase 47 40-136 U/L Total Protein 5.7 L 6.4-8.2 GM/DL Albumin 3.5 3.2-4.5 GM/DL Vital Sign - Last 24 Hours 09/20/21 09/20/21 09/20/21 09/20/21 10:05 14:10 18:16 20:00 Temp 36.8 36.7 36.5 Pulse 69 72 68 Resp 18 16 18 B/P (MAP) 98/57 (71) 100/58 (72) 102/60 (74) Pulse Ox 98 100 99 O2 Delivery Room Air Room Air Room Air Room Air 09/20/21 09/20/21 09/21/21 20:00 23:24 06:00 Temp 36.5 36.8 36.6 Pulse 82 96 58 Resp 18 18 18 B/P (MAP) 118/77 (91) 111/65 (80) 97/53 (68) Pulse Ox 99 99 99 O2 Delivery Room Air Room Air Room Air Gen: AOx 3 in NAD Diagnosis: HEG 8 week Plan; DC home today with steroid taper and antiemetics JAYCE SUTHERLAND DO September 21, 2021 9:40 am
[2021-09-21] MEDS: FOLIC ACID INJECTION 1 MG in NS (IVPB) 50 ML IV SCH (11:42)
[2021-09-21] MEDS: FAMOTIDINE 20MG/2ML IV (PEPCID) IVP SCH (11:49)
[2021-09-21] MEDS: FAMOTIDINE 20 MG (PEPCID) TABLET PO SCH (12:02)
[2021-09-21 12:04] VITALS: BP 91/54
[2021-09-21 16:30] VITALS: BP 99/51
--- NOTE | 2021-09-29 07:46 | DISCHARGE SUMMARY ---
DATE OF SERVICE: ADMISSION DIAGNOSES: 1. A 26-year-old G1, P0, at 7 weeks and 6 days gestation by first trimester ultrasound. 2. Hyperemesis gravidarum. DISCHARGE DIAGNOSES: 1. A 26-year-old G1, P0, at 7 weeks and 6 days gestation by first trimester ultrasound. 2. Hyperemesis gravidarum. 3. An 8 week . ADMITTING AND ATTENDING PHYSICIAN: Dr. Noemi Burns. Coverage by Jayce Sutherland DO HOSPITAL COURSE: Please see admission H and P from 09/18/2021, for complete details pertaining to the patient's admission presentation and plan of care. On admission day #1, IV fluids were administered. Antiemetics were administered and the patient was feeling somewhat better; however, continued to have hyperemesis throughout the day, unable to hold down food, IV Reglan 10 mg as well as Benadryl and Phenergan and IV Pepcid were all started. Dr. Burns ended up starting steroid infusion as well to help with the hyperemesis. On admission day #2, the patient was doing somewhat better that evening. She ended up tolerating pizza however, continued to have nausea and vomiting throughout the day. She was held over until admission day #3. On admission day #3, the patient was still feeling weak, but reporting doing well that morning so far and not thrown up since the day before. Her vital signs remained stable. Her labs were within normal limits. Due to clinical stability, the decision was made to discharge the patient home on admission day #3. She was given routine hyperemesis precautions and first trimester miscarriage precautions and told to return to care if any concerns should arise. She was sent home on following medications including Benadryl 25 mg p.o. q.6 hours, #90. Famotidine 20 mg p.o. b.i.d., #60. Medrol Dosepak 4 mg tab 10 mg p.o. a total of 6 days and Reglan 10 mg tablet p.o. q.6 hours 120 was given. She was told to continue her Tums, her Phenergan that was already prescribed to her and the patient had stopped Zofran at that point, discharge was facilitated at that point without further difficulties. Job ID: [id number] DocumentID: [id number] Dictated Date: 09/28/2021 09:48:14 [employer] Date: 09/29/2021 07:45:21 Dictated By: JAYCE SUTHERLAND DO
== END 2021-09-21 18:10 | disposition home or self-care (01) ==
LOC: EDUNIT# 18:18 → ER FS 18:19 → LDRP 22:28
PROVIDERS: ADMIT Obstetrics & Gynecology; ATTEND Obstetrics & Gynecology
DX: O21.1 Hyperemesis gravidarum with metabolic disturbance (principal); E86.0 Dehydration; Z3A.08 8 weeks gestation of pregnancy
CPT/HCPCS: 36415; 71046; 76801; 80053 ×5; 83690; 83735 ×5; 84100 ×2; 84484; 85025 ×4; 93005 ×2; 96361 ×5; 96374; 96375 ×4; 96376 ×4; 99284; G0378

== ENCOUNTER 2021-09-24 16:55 | Emergency (ER) | payer MEDICAID, OTHER ==
[~2021-09-24] VITALS: Ht 180 cm; Wt 55.0 kg
[~2021-09-24 16:55] MED LIST changes: +CALC500T7 PO; +DIPH25CA79 PO; +FAMO-119 PO; +METO-310 PO; +NF-METHYLP PO
[2021-09-24 17:09] VITALS: BP 118/73
[2021-09-24] MEDS ORDERED: ONDANSETRON 4 MG/2 ML (SDV) Z0FRAN IVP ONE (17:15)
[2021-09-24] MEDS ORDERED: PROCHLORPERAZINE 10 MG/2ML INJ (COMPAZINE) IV ONE (17:15)
[2021-09-24] MEDS ORDERED: LACTATED RINGERS 1,000 ML IV SCH ×2 (17:15)
[2021-09-24 17:26] LABS: BASOPHILS % (AUTO) 0 % (0-10); EOSINOPHILS % (AUTO) 0 % (0-10); HEMATOCRIT 41 % (35-52); HEMOGLOBIN 14.5 g/dL (11.5-16.0); LYMPHOCYTES # (AUTO) 1.8 10^3/uL (1.0-4.0); LYMPHOCYTES % (AUTO) 14 % (12-44); MEAN CORPUSCULAR HGB CONC 35 g/dL (32-36); MEAN CORPUSCULAR VOLUME 87 fL (80-99); MEAN PLATELET VOLUME 9.5 fL (9.0-12.2); MONOCYTES # (AUTO) 0.9 10^3/uL (0.0-1.0); MONOCYTES % (AUTO) 7 % (0-12); NEUTROPHILS # (AUTO) 9.8 10^3/uL (1.8-7.8); NEUTROPHILS % (AUTO) 78 % (42-75); PLATELET COUNT 247 10^3/uL (130-400); WHITE BLOOD COUNT 12.5 10^3/uL (4.3-11.0)
[2021-09-24 17:29] LABS: MEAN CORPUSCULAR HEMOGLOBIN 30 pg (25-34)
[2021-09-24 17:49] LABS: POTASSIUM 4.3 MMOL/L (3.6-5.0)
[2021-09-24 17:50] LABS: ALBUMIN 4.3 GM/DL (3.2-4.5); BILIRUBIN,TOTAL 0.8 MG/DL (0.1-1.0); CALCIUM 9.3 MG/DL (8.5-10.1); CREATININE SERUM 0.55 MG/DL (0.60-1.30); TOTAL PROTEIN 7.2 GM/DL (6.4-8.2)
[2021-09-24] MEDS ORDERED: ACETAMINOPHEN 500 MG TAB (TYLENOL) PO ONE (18:00)
--- NOTE | 2021-09-24 18:25 | ED GI ---
General Chief Complaint: Abdominal/GI Problems Stated Complaint: NAUSEA Nursing Triage Note: Patient has presented to ER with cc of vomiting and abd pain. She reports that she is 9 weeks . She has taken her medications at home but she continues to have the vomiting. Source of Information: Patient Exam Limitations: No Limitations History of Present Illness Date Seen by Provider: September 24, 2021 Time Seen by Provider: 16:20 Initial Comments Patient is a 26-year-old estimated 9-week gestation female with history of severe Skip Bharat sickness with recent hospital for the same who presents with continued nausea and vomiting with epigastric abdominal pain. Patient last took nausea medication at 11 AM and has been unable to keep food or fluids down today. She also reports mild headache. No other symptoms or complaints. Patient reports no weight loss since . Timing/Duration: 1-3 Hours Severity/Quality: Moderate Location: Other Radiation: Other Activities at Onset: Other Modifying Factors: Improves With Other Associated Symptoms: Other Allergies and Home Medications Allergies Coded Allergies: No Known Drug Allergies (Unverified , 04/26/21) Patient Home Medication List Home Medication List Reviewed: Yes Calcium Carbonate (Tums) 200 Mg Calcium (500 Mg) Tab.chew, 200 MG PO PRN, (Reported) Entered as Reported by: JUANIS POSEY on 09/19/21 0314 Diphenhydramine HCl (Benadryl) 25 Mg Capsule, 25 MG PO Q6H Prescribed by: Noemi Burns on 09/18/21 1116 Famotidine (Pepcid) 20 Mg Tablet, 20 MG PO BID Prescribed by: Noemi Burns on 09/18/21 1116 Methylprednisolone (Medrol Dose pack) 4 Mg Tab, 10 MG PO UD Prescribed by: Noemi Burns on 09/20/21 0907 Metoclopramide HCl (Reglan) 10 Mg Tablet, 10 MG PO Q6H Prescribed by: Noemi Burns on 09/18/21 1116 Promethazine HCl (Promethazine Tablet) 25 Mg Tablet, 25 MG PO Q6H PRN for NAUSEA/VOMITING-2ND LINE Prescribed by: NICOL VOGEL on 09/15/21 1219 Promethazine HCl (Promethazine Suppository) 25 Mg Supp.rect, 25 MG RC Q6H PRN for NAUSEA/VOMITING-3RD LINE Prescribed by: NICOL VOGEL on 09/15/21 1219 Discontinued Medications Ondansetron (Ondansetron Odt) 4 Mg Tab.rapdis, 4 MG PO TID PRN for NAUSEA/VOMITING-1ST LINE Prescribed by: INESSA GASTON on 04/26/21 1645 Ondansetron (Ondansetron Odt) 4 Mg Tab.rapdis, 4 MG PO Q6H PRN for TERRANCE SEA/VOMITING-1ST LINE Prescribed by: NICOL VOGEL on 09/15/21 1219 Review of Systems Review of Systems Constitutional: see HPI EENTM: See HPI Respiratory: See HPI Cardiovascular: See HPI Gastrointestinal: See HPI Musculoskeletal: see HPI Skin: see HPI Psychiatric/Neurological: See HPI Endocrine: See HPI Hematologic/Lymphatic: See HPI All Other Systems Reviewed Negative Unless Noted: Yes Past Dmhsyfu-Qgirrg-Ixiwzv Hx Patient Social History Tobacco Use?: Yes Use of E-Cig and/or Vaping dev: No Substance use?: No Alcohol Use?: No Past Medical History Surgery/Hospitalization HX: appendectomy and ioana Surgeries: Yes Appendectomy, Gallbladder Physical Exam Vital Signs Vital Signs - First Documented 09/24/21 17:09 Temp 36.7 Pulse 82 B/P (MAP) 118/73 (88) Pulse Ox 99 O2 Delivery Room Air Capillary Refill : Height/Weight/BMI Height: '" Weight: lbs. oz. kg; 16.00 BMI Method: General Appearance: WD/WN, no apparent distress HEENT: PERRL/EOMI, normal ENT inspection, TMs normal Neck: full range of motion, supple Respiratory: lungs clear, normal breath sounds Cardiovascular: regular rate, rhythm Gastrointestinal: non tender, soft Extremities: normal range of motion, non-tender Neurologic/Psychiatric: pomologist II-XII nml as tested, no motor/sensory deficits, alert, oriented x 3 Focused Exam Sepsis Stage: Ruled Out Progress/Results/Core Measures Results/Orders Lab Results Laboratory Tests Test 09/24/21 17:15 Range/Units White Blood Count 12.5 H 4.3-11.0 10^3/uL Red Blood Count 4.76 3.80-5.11 10^6/uL Hemoglobin 14.5 # 11.5-16.0 g/dL Hematocrit 41 35-52 % Mean Corpuscular Volume 87 80-99 fL Mean Corpuscular Hemoglobin 30 25-34 pg Mean Corpuscular Hemoglobin Concent 35 32-36 g/dL Red Cell Distribution Width 12.6 10.0-14.5 % Platelet Count 247 130-400 10^3/uL Mean Platelet Volume 9.5 9.0-12.2 fL Immature Granulocyte % (Auto) 1 % Neutrophils (%) (Auto) 78 H 42-75 % Lymphocytes (%) (Auto) 14 12-44 % Monocytes (%) (Auto) 7 0-12 % Eosinophils (%) (Auto) 0 0-10 % Basophils (%) (Auto) 0 0-10 % Neutrophils # (Auto) 9.8 H 1.8-7.8 10^3/uL Lymphocytes # (Auto) 1.8 1.0-4.0 10^3/uL Monocytes # (Auto) 0.9 0.0-1.0 10^3/uL Eosinophils # (Auto) 0.0 0.0-0.3 10^3/uL Basophils # (Auto) 0.0 0.0-0.1 10^3/uL Immature Granulocyte # (Auto) 0.1 0.0-0.1 10^3/uL Sodium Level 135 135-145 MMOL/L Potassium Level 4.3 3.6-5.0 MMOL/L Chloride Level 102 98-107 MMOL/L Carbon Dioxide Level 23 21-32 MMOL/L Anion Gap 10 5-14 MMOL/L Blood Urea Nitrogen 8 7-18 MG/DL Creatinine 0.55 L 0.60-1.30 MG/DL Estimat Glomerular Filtration Rate 130 BUN/Creatinine Ratio 15 Glucose Level 95 70-105 MG/DL Calcium Level 9.3 8.5-10.1 MG/DL Corrected Calcium 9.1 8.5-10.1 MG/DL Total Bilirubin 0.8 0.1-1.0 MG/DL Aspartate Amino Transf (AST/SGOT) 20 5-34 U/L Alanine Aminotransferase (ALT/SGPT) 39 0-55 U/L Alkaline Phosphatase 59 40-136 U/L Total Protein 7.2 6.4-8.2 GM/DL Albumin 4.3 3.2-4.5 GM/DL My Orders Orders - CNONIE CASTAÑEDA DO Cbc With Automated Diff (09/24/21 17:06) Comprehensive Metabolic Panel (09/24/21 17:06) Urinalysis (09/24/21 17:06) Lactated Ringers (Lr 1000 Ml Iv Solution (09/24/21 17:15) Ondansetron Injection (Zofran Injectio (09/24/21 17:15) Prochlorperazine Injection (Compazine In (09/24/21 17:15) Lactated Ringers (Lr 1000 Ml Iv Solution (09/24/21 17:15) Acetaminophen Tablet (Tylenol Tablet) (09/24/21 18:00) Medications Given in ED Current Medications Medications Dose Ordered Sig/Dorota Route Start Time Stop Time Status Last Admin Dose Admin Ondansetron HCl 8 mg ONCE ONCE IVP 09/24/21 17:15 09/24/21 17:16 DC 09/24/21 17:24 8 MG Prochlorperazine Edisylate 10 mg ONCE ONCE IV 09/24/21 17:15 09/24/21 17:16 DC 09/24/21 17:24 10 MG Vital Signs/I&O 09/24/21 17:09 Temp 36.7 Pulse 82 B/P (MAP) 118/73 (88) Pulse Ox 99 O2 Delivery Room Air Blood Pressure Mean: 88 Departure Communication (Admissions) IV fluids antiemetics given. With clinical relief of symptoms. Patient able tolerate oral fluids and medications. Recommendations are supportive care with PCP/OB follow-up as scheduled. Return precautions reviewed. Impression Primary Impression: Morning sickness Disposition: HOME, SELF-CARE Condition: Stable Departure-Patient Inst. Decision time for Depature: 18:24 Referrals: NO,LOCAL PHYSICIAN (PCP) Primary Care Physician Patient Instructions: Morning Sickness (DC) Add. Discharge Instructions: You were evaluated in the emergency department for morning sickness. Lab work was performed and is normal. Please continue home nausea medications as directed drink clear liquids and increase to a bland diet over the next several hours as tolerated. Follow-up with your PCP and/or [employer]. Return to the ED if new or concerning symptoms. All discharge instructions reviewed with patient and/or family. Voiced understanding. CONNIE CASTAÑEDA DO September 24, 2021 18:25
== END 2021-09-24 18:30 | disposition home or self-care (01) ==
LOC: EDUNIT# 16:55 → ER FS 16:56
DX: O21.0 Mild hyperemesis gravidarum (principal); Z3A.09 9 weeks gestation of pregnancy
CPT/HCPCS: 36415; 80053; 85025

== ENCOUNTER 2022-09-19 09:45 | Emergency (ER) | payer MEDICAID ==
[2022-09-19] MEDS ORDERED: NS IV 1000 ML 1,000 ML IV STA (10:09)
[2022-09-19] MEDS ORDERED: KETOROLAC 15 MG/ML VIAL IVP ONE (10:15)
[2022-09-19] MEDS ORDERED: ONDANSETRON 4 MG/2 ML (SDV) Z0FRAN IVP ONE (10:15)
--- NOTE | 2022-09-19 10:25 | ED GI ---
General Chief Complaint: Abdominal/GI Problems Stated Complaint: VOMITING Nursing Triage Note: Patient presents to the ED with c/o nausea and vomiting. Symptoms began last night after consuming 4 alcoholic beverages. States she has been unable to sleep due to the persistent nausea vomiting. Denies any abdominal pain. Reports headache. Source of Information: Patient Exam Limitations: No Limitations History of Present Illness Date Seen by Provider: Sep 19, 2022 Time Seen by Provider: 09:46 Initial Comments 27-year-old female with no pertinent past medical history coming in due to several episodes of nonbloody nonbilious vomiting as well as nonbloody diarrhea. Symptoms began last night after consuming 4 alcoholic beverages. She states that she is not a "light weight". She states typically she would not be vomit ing from just for beverages. Had a difficult time sleeping last night due to the nausea. Denies any abdominal pain, does have a mild headache, no vision changes, weakness, numbness, chest pain, shortness of breath, fever, or any other concerns. No one around her has been sick that she knows of. LMP was 2 weeks ago. Allergies and Home Medications Allergies Coded Allergies: No Known Drug Allergies (Unverified , 04/26/21) Patient Home Medication List Home Medication List Reviewed: Yes Calcium Carbonate (Tums) 200 Mg Calcium (500 Mg) Tab.chew, 200 MG PO PRN, (Reported) Entered as Reported by: JUANIS POSEY on 09/19/21 0314 Diphenhydramine HCl (Benadryl) 25 Mg Capsule, 25 MG PO Q6H Prescribed by: Noemi Burns on 09/18/21 1116 Famotidine (Pepcid) 20 Mg Tablet, 20 MG PO BID Prescribed by: Noemi Burns on 09/18/21 111 Methylprednisolone (Medrol Dose pack) 4 Mg Tab, 10 MG PO UD Prescribed by: Noemi Burns on 09/20/21 0907 Metoclopramide HCl (Reglan) 10 Mg Tablet, 10 MG PO Q6H Prescribed by: Noemi Burns on 09/18/21 1116 Promethazine HCl (Promethazine Tablet) 25 Mg Tablet, 25 MG PO Q6H PRN for NAUSEA/VOMITING-2ND LINE Prescribed by: NICOL VOGEL on 09/15/21 1219 Promethazine HCl (Promethazine Suppository) 25 Mg Supp.rect, 25 MG RC Q6H PRN for NAUSEA/VOMITING-3RD LINE Prescribed by: NICOL VOGEL on 09/15/21 1219 Review of Systems Review of Systems Constitutional: No fever EENTM: No Symptoms Reported Respiratory: No Symptoms Reported Cardiovascular: No Symptoms Reported Gastrointestinal: See HPI Genitourinary: No Symptoms Reported Musculoskeletal: no symptoms reported Skin: no symptoms reported Psychiatric/Neurological: No Symptoms Reported Endocrine: No Symptoms Reported Hematologic/Lymphatic: No Symptoms Reported Past Xhtngii-Eqllun-Prkaug Hx Patient Social History Tobacco Use?: No Use of E-Cig and/or Vaping dev: No Substance use?: No Alcohol Use?: Yes Alcohol Frequency: Once in a while Pt feels they are or have been: No Immunizations Up To Date Influenza Vaccine Up-to-Date: No; Not Current First/Initial COVID19 Vaccinat: Denies Past Medical History Surgery/Hospitalization HX: appendectomy and ioana Surgeries: Yes Appendectomy, Gallbladder Last Menstrual Period: Sep 04, 2022 Physical Exam Vital Signs Vital Signs - First Documented 09/19/22 09:55 Temp 36.0 Pulse 102 Resp 16 B/P (MAP) 112/79 (90) Pulse Ox 99 O2 Delivery Room Air Capillary Refill : Less Than 3 Seconds Height/Weight/BMI Height: '" Weight: lbs. oz. kg; 16.00 BMI Method: General Appearance: WD/WN, no apparent distress HEENT: PERRL/EOMI, normal ENT inspection, pharynx normal Neck: non-tender, full range of motion, supple, normal inspection Respiratory: chest non-tender, lungs clear, normal breath sounds, no respiratory distress, no accessory muscle use Cardiovascular: regular rate, rhythm, no edema, no murmur Gastrointestinal: normal bowel sounds, non tender, soft; No distended, No guarding, No rebound Extremities: normal range of motion, non-tender, normal inspection, no pedal edema, no calf tenderness, normal capillary refill Back: normal inspection, no CVA tenderness Neurologic/Psychiatric: no motor/sensory deficits, alert, normal mood/affect Skin: normal color, warm/dry Progress/Results/Core Measures Results/Orders My Orders Orders - NICOL VOGEL MD Urine Bedside (09/19/22 09:57) Drug Screen Stat (Urine) (09/19/22 09:57) Ua Culture If Indicated (09/19/22 09:57) Ed Iv/Invasive Line Start (09/19/22 10:09) Ns Iv 1000 Ml (Sodium Chloride 0.9%) (09/19/22 10:09) Ondansetron Injection (Zofran Injectio (09/19/22 10:15) Ketorolac Injection (Toradol Injection) (09/19/22 10:15) Promethazine Tablet (Phenergan Tablet) (09/19/22 11:00) Medications Given in ED Current Medications Medications Dose Ordered Sig/Dorota Route Start Time Stop Time Status Last Admin Dose Admin Ketorolac Tromethamine 15 mg ONCE ONCE IVP 09/19/22 10:15 09/19/22 10:16 DC 09/19/22 10:21 15 MG Ondansetron HCl 4 mg ONCE ONCE IVP 09/19/22 10:15 09/19/22 10:16 DC 09/19/22 10:21 4 MG Vital Signs/I&O 09/19/22 09:55 Temp 36.0 Pulse 102 Resp 16 B/P (MAP) 112/79 (90) Pulse Ox 99 O2 Delivery Room Air Blood Pressure Mean: 90 Progress Progress Note : Progress Note 27-year-old female coming in due to nonbloody nonbilious vomiting and nonbloody diarrhea. ABCs were intact and vitals were stable on presentation. Physical exam reassuring including a soft and nontender abdomen. Overall she is nontoxic-appearing which is reassuring. An IV was placed and she was given a bolus of IV fluids given the persistent vomiting and diarrhea. She was given IV Zofran. Later on given oral Phenergan and is tolerating p.o. fluids. LMP was 2 weeks ago, unlikely patient is . Considered doing basic labs including a CBC and CMP with lipase. Given no abdominal tenderness, I think is highly unlikely she has any significant etiology of these symptoms. Because of this, labs were not ordered. Also given no tenderness, very unlikely to be a bowel obstruction versus worsening etiology, especially given she does not have her gallbladder or appendix. Because of this, CT imaging not ordered. Likely viral illness versus side effect of alcohol intake. I believe she is otherwise stable for discharge with outpatient follow-up. She was sent home with strict return precautions. Prescription sent for nausea medications. Departure Impression Primary Impression: Vomiting and diarrhea Disposition: HOME, SELF-CARE Condition: Stable Departure-Patient Inst. Decision time for Depature: 11:20 Referrals: NO,LOCAL PHYSICIAN (PCP/Family) Primary Care Physician Patient Instructions: Viral Gastroenteritis in Adults Add. Discharge Instructions: Anytime somebody has vomiting with diarrhea, it is much more likely to be a viral illness. This could also be known as the "stomach flu". Typically this last anywhere from 24 to 72 hours. It can last up to 5 days. Prescription medicines for Zofran which is for nausea were sent to your pharmacy. If this does not work, a suppository was also sent of Phenergan that you can take in the worst circumstances. Otherwise follow-up with your regular doctor if you are not improving the next couple of days. Take frequent but small sips of fluids over the next couple of days. Scripts Promethazine HCl (Promethazine Suppository) 25 Mg Supp.rect 25 MG RC Q8H PRN for NAUSEA/VOMITING-2ND LINE for 4 Days, #12 SUPP.RECT Prov: NICOL VOGEL MD 09/19/22 Ondansetron (Ondansetron Odt) 4 Mg Tab.rapdis 4 MG SL Q6H PRN for NAUSEA/VOMITING-1ST LINE for 5 Days, #20 TAB Prov: NICOL VOGEL MD 09/19/22 Work/School Note: Work Release Form Date Seen in the Emergency Department: Sep 19, 2022 Return to Work: September 21, 2022 Restrictions: Return-No Vomiting(24hrs) NICOL VOGEL MD Sep 19, 2022 10:25
[2022-09-19] MEDS ORDERED: PROMETHAZINE 25 MG (PHENERGAN) TAB PO ONE (11:00)
[2022-09-19] MEDS ORDERED: ONDA4TAB11 SL (11:14)
[2022-09-19] MEDS ORDERED: PROM25SU44 RC (11:14)
[2022-09-19 11:16] VITALS: BP 115/72
== END 2022-09-19 11:18 | disposition home or self-care (01) ==
LOC: EDUNIT# 09:45 → ER FS 09:47
DX: R11.2 Nausea with vomiting, unspecified (principal); R19.7 Diarrhea, unspecified; Z28.310 Unvaccinated for COVID-19

== ENCOUNTER 2022-09-25 10:30 | Emergency (ER) | payer MEDICAID ==
[~2022-09-25] VITALS: Ht 180 cm; Wt 53.0 kg
[~2022-09-25 10:30] MED LIST changes: +ONDA4TAB11 SL
[2022-09-25] MEDS ORDERED: NS IV 1000 ML 1,000 ML IV STA ×2 (11:09→12:20)
[2022-09-25] MEDS ORDERED: ONDANSETRON 4 MG/2 ML (SDV) Z0FRAN IVP ONE ×2 (11:15→12:30)
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
[2022-09-25 11:26] LABS: BASOPHILS # (AUTO) 0.1 10^3/uL (0.0-0.1); BASOPHILS % (AUTO) 1 % (0-10); EOSINOPHILS # (AUTO) 0.1 10^3/uL (0.0-0.3); EOSINOPHILS % (AUTO) 1 % (0-10); HEMATOCRIT 44 % (35-52); LYMPHOCYTES # (AUTO) 1.3 10^3/uL (1.0-4.0); LYMPHOCYTES % (AUTO) 15 % (12-44); MEAN CORPUSCULAR HEMOGLOBIN 30 pg (25-34); MEAN CORPUSCULAR HGB CONC 34 g/dL (32-36); MEAN CORPUSCULAR VOLUME 87 fL (80-99); MEAN PLATELET VOLUME 9.4 fL (9.0-12.2); MONOCYTES # (AUTO) 0.5 10^3/uL (0.0-1.0); MONOCYTES % (AUTO) 6 % (0-12); NEUTROPHILS # (AUTO) 6.9 10^3/uL (1.8-7.8); NEUTROPHILS % (AUTO) 78 % (42-75); PLATELET COUNT 225 10^3/uL (130-400); WHITE BLOOD COUNT 8.8 10^3/uL (4.3-11.0)
[2022-09-25 11:36] LABS: ALBUMIN 4.6 GM/DL (3.2-4.5); CHLORIDE 111 MMOL/L (98-107); POTASSIUM 4.2 MMOL/L (3.6-5.0); SODIUM 143 MMOL/L (135-145)
[2022-09-25 11:38] LABS: CALCIUM 9.2 MG/DL (8.5-10.1)
[2022-09-25 11:39] LABS: GLUCOSE 102 MG/DL (70-105); TOTAL PROTEIN 7.6 GM/DL (6.4-8.2)
[2022-09-25 11:40] LABS: BILIRUBIN,TOTAL 0.5 MG/DL (0.1-1.0); CARBON DIOXIDE 19 MMOL/L (21-32)
[2022-09-25 11:42] LABS: ALKALINE PHOSPHATASE 68 U/L (40-136); CREATININE SERUM 0.73 MG/DL (0.60-1.30); GFR ESTIMATED 116
[2022-09-25 11:43] LABS: BUN/CREATININE RATIO 15
[2022-09-25 11:45] LABS: ALANINE AMINOTRANSFERASE 21 U/L (0-55)
[2022-09-25 11:46] LABS: LIPASE 32 U/L (8-78)
[2022-09-25] MEDS ORDERED: KETOROLAC 30 MG/ML VIAL IVP ONE (12:30)
[2022-09-25 13:00] LABS: BILIRUBIN,URINE NEGATIVE (NEGATIVE); CLARITY,URINE CLEAR; COLOR,URINE YELLOW; GLUCOSE, URINE (UA) NEGATIVE (NEGATIVE); KETONES,URINE NEGATIVE (NEGATIVE); LEUKOCYTE ESTERASE ,URINE NEGATIVE (NEGATIVE); NITRITE,URINE NEGATIVE (NEGATIVE); PH,URINE 7.5 (5-9); PROTEIN,URINE NEGATIVE (NEGATIVE)
[2022-09-25 13:04] LABS: HCG,QUALITATIVE URINE NEGATIVE (NEGATIVE)
[2022-09-25] MEDS ORDERED: PROMETHAZINE INJ 25 MG/ML (PHENERGAN) AMP IVP ONE (13:15)
[2022-09-25 13:17] LABS: AMPHETAMINE SCREEN, URINE NEGATIVE (NEGATIVE); BACTERIA,URINE TRACE /HPF; BARBITURATE SCREEN URINE NEGATIVE (NEGATIVE); BENZODIAZEPINES SCREEN URINE NEGATIVE (NEGATIVE); CANNABINOID SCREEN, URINE NEGATIVE (NEGATIVE); COCAINE SCREEN URINE NEGATIVE (NEGATIVE); METHADONE STAT NEGATIVE (NEGATIVE); OPIATE SCREEN URINE NEGATIVE (NEGATIVE); OXYCODONE STAT NEGATIVE (NEGATIVE); PROPOXYPHENE STAT NEGATIVE (NEGATIVE); TRICYCLIC ANTIDEPRESSANTS SCRE NEGATIVE (NEGATIVE); WBC,URINE RARE /HPF
[2022-09-25] MEDS ORDERED: ONDA4TAB11 SL (13:25)
[2022-09-25] MEDS ORDERED: morphine INJ 10 MG/ML 1ML (SYR OR VIAL) IVP ONE (13:45)
[2022-09-25] MEDS ORDERED: ACETAMINOPHEN 325 MG TABLET PO ONE (13:45)
[2022-09-25 14:18] VITALS: BP 120/80
== END 2022-09-25 14:18 | disposition home or self-care (01) ==
LOC: EDUNIT# 10:30 → ER 10:33
DX: R11.2 Nausea with vomiting, unspecified (principal); R10.9 Unspecified abdominal pain; Z28.310 Unvaccinated for COVID-19
CPT/HCPCS: 36415; 80053; 80306; 81000; 83690; 84703; 85025

== ENCOUNTER 2023-02-24 14:30 | Emergency (ER) | payer MEDICAID ==
[~2023-02-24] VITALS: Ht 180.3 cm; Wt 53.0 kg
[2023-02-24 14:56] LABS: BASOPHILS # (AUTO) 0.1 10^3/uL (0.0-0.1); BASOPHILS % (AUTO) 1 % (0-10); EOSINOPHILS # (AUTO) 0.2 10^3/uL (0.0-0.3); EOSINOPHILS % (AUTO) 4 % (0-10); HEMATOCRIT 43 % (35-52); HEMOGLOBIN 14.2 g/dL (11.5-16.0); LYMPHOCYTES # (AUTO) 1.8 10^3/uL (1.0-4.0); LYMPHOCYTES % (AUTO) 34 % (12-44); MEAN CORPUSCULAR HEMOGLOBIN 30 pg (25-34); MEAN CORPUSCULAR HGB CONC 33 g/dL (32-36); MEAN CORPUSCULAR VOLUME 91 fL (80-99); MEAN PLATELET VOLUME 9.6 fL (9.0-12.2); MONOCYTES # (AUTO) 0.5 10^3/uL (0.0-1.0); MONOCYTES % (AUTO) 10 % (0-12); NEUTROPHILS # (AUTO) 2.8 10^3/uL (1.8-7.8); NEUTROPHILS % (AUTO) 52 % (42-75); PLATELET COUNT 259 10^3/uL (130-400); WHITE BLOOD COUNT 5.5 10^3/uL (4.3-11.0)
[2023-02-24] MEDS ORDERED: ONDANSETRON INJECTION 4 MG/2 ML (SDV) IVP ONE (15:00)
[2023-02-24] MEDS ORDERED: LIDOCAINE 2% VISCOUS 15 ML UDC PO ONE (15:00)
[2023-02-24] MEDS ORDERED: ANTACID SUSPENSION 30 ML UDC PO ONE (15:00)
[2023-02-24 15:13] LABS: CALCIUM 9.3 MG/DL (8.5-10.1); CREATININE SERUM 0.76 MG/DL (0.60-1.30); POTASSIUM 3.9 MMOL/L (3.6-5.0); TOTAL PROTEIN 7.1 GM/DL (6.4-8.2)
[2023-02-24 15:14] LABS: ALBUMIN 4.5 GM/DL (3.2-4.5)
[2023-02-24] MEDS ORDERED: fentaNYL INJECTION 100 MCG/2 ML VIAL IVP ONE (16:00)
--- NOTE | 2023-02-24 16:18 | Diagnostic Imaging Report ---
INDICATION: Chest pain. PA and lateral chest obtained at 4:05 p.m. FINDINGS: Heart and mediastinal silhouette are normal in appearance. The lungs are clear. There is no pneumothorax or pleural fluid. IMPRESSION: Negative chest. Dictated by: Dictated on workstation # [id number]
[2023-02-24 16:33] LABS: LIPASE 54 U/L (8-78)
--- NOTE | 2023-02-24 16:46 | ED Chest Pain ---
General Chief Complaint: Chest Pain Stated Complaint: CHEST PAIN, GOTTLIEB NAUSEA Nursing Triage Note: ARRIVES TO ED WITH A C/O CHEST PAIN FOR AN HOUR AND A HALF TODAY, NOW REPORTS HEADACHE AND NAUSEA WELL. Source: patient Exam Limitations: no limitations History of Present Illness Date Seen by Provider: Feb 24, 2023 Time Seen by Provider: 14:44 Initial Comments This 28-year-old young lady presents to the emergency room by private vehicle w ith fairly abrupt onset of headache, chest pain, and nausea that started within the past 2 hours. She denies any cough. Deep breathing does seem to worsen her chest pain a bit. She had Reglan at home which she took for the nausea but she still feels nauseated. She also has some discomfort in the epigastric region. She denies fever. She describes a vague feeling of dizziness. She has foggy sensorium and a sensation that her visual perception lags behind head position changes. Allergies and Home Medications Allergies Coded Allergies: No Known Drug Allergies (Unverified , 04/26/21) Patient Home Medication List Home Medication List Reviewed: Yes Calcium Carbonate (Tums) 200 Mg Calcium (500 Mg) Tab.chew, 200 MG PO PRN, (Reported) Entered as Reported by: JUANIS POSEY on 09/19/21 0314 Diphenhydramine HCl (Benadryl) 25 Mg Capsule, 25 MG PO Q6H Prescribed by: Noemi Burns on 09/18/21 111 Famotidine (Pepcid) 20 Mg Tablet, 20 MG PO BID Prescribed by: Noemi Burns on 09/18/21 1116 Methylprednisolone (Medrol Dose pack) 4 Mg Tab, 10 MG PO UD Prescribed by: Noemi Burns on 09/20/21 0907 Metoclopramide HCl (Reglan) 10 Mg Tablet, 10 MG PO Q6H Prescribed by: Noemi Burns on 09/18/21 1116 Ondansetron (Ondansetron Odt) 4 Mg Tab.rapdis, 4 MG SL Q6H PRN for NAUSEA/VOMITING-1ST LINE Prescribed by: NICOL VOGEL on 09/19/22 1114 Ondansetron (Ondansetron Odt) 4 Mg Tab.rapdis, 4 MG SL Q4H PRN for NAUSEA/VOMITING Prescribed by: INESSA GASTON on 09/25/22 1325 Ondansetron (Ondansetron Odt) 4 Mg Tab.rapdis, 4 MG SL Q4H PRN for NAUSEA/VOMITING Prescribed by: MINA TAPIA on 02/24/23 1722 Promethazine HCl (Promethazine Tablet) 25 Mg Tablet, 25 MG PO Q6H PRN for NAUSEA/VOMITING-2ND LINE Prescribed by: NICOL VOGEL on 09/15/21 1219 Promethazine HCl (Promethazine Suppository) 25 Mg Supp.rect, 25 MG RC Q6H PRN for NAUSEA/VOMITING-3RD LINE Prescribed by: NICOL VOGEL on 09/15/21 1219 Promethazine HCl (Promethazine Suppository) 25 Mg Supp.rect, 25 MG RC Q8H PRN for NAUSEA/VOMITING-2ND LINE Prescribed by: NICOL VOGEL on 09/19/22 1114 Review of Systems Review of Systems Constitutional: no symptoms reported EENTM: No Symptoms Reported Respiratory: No Symptoms Reported Cardiovascular: See HPI Gastrointestinal: See HPI Genitourinary: No Symptoms Reported Musculoskeletal: see HPI Skin: no symptoms reported Psychiatric/Neurological: See HPI Endocrine: No Symptoms Reported Hematologic/Lymphatic: No Symptoms Reported Past Txedldg-Vrwidr-Dmcdjl Hx Patient Social History Tobacco Use?: No Use of E-Cig and/or Vaping dev: No Substance use?: No Alcohol Use?: No Pt feels they are or have been: No Immunizations Up To Date Influenza Vaccine Up-to-Date: No; Not Current First/Initial COVID19 Vaccinat: Denies Second COVID19 Vaccination Ethan: Denies Third COVID19 Vaccination Date: Denies Past Medical History Surgery/Hospitalization HX: appendectomy and ioana Surgeries: Yes Appendectomy, Gallbladder Respiratory: No Cardiac: No Neurological: Yes Seizure Disorder (Childhood seizures generally triggered by pain) : No Last Menstrual Period: Feb 23, 2023 Reproductive Disorders: No Genitourinary: No Gastrointestinal: No Musculoskeletal: No Endocrine: No HEENT: No Cancer: No Psychosocial: No Integumentary: No Physical Exam Vital Signs Vital Signs - First Documented 02/24/23 14:35 Temp 36.9 Pulse 71 Resp 13 B/P (MAP) 113/70 (84) Pulse Ox 100 O2 Delivery Room Air Capillary Refill : Less Than 3 Seconds Height, Weight, BMI Height: '" Weight: lbs. oz. kg; 16.00 BMI Method: General Appearance: WD/WN, Mild Distress, Thin HEENT: PERRL/EOMI, TMs Normal, Normal ENT Inspection, Pharynx Normal Neck: Normal Inspection; No JVD Respiratory: Lungs Clear, Normal Breath Sounds, No Accessory Muscle Use, No Respiratory Distress, Other (Anterior chest wall somewhat tender to palpation but normal to visual inspection) Cardiovascular: Regular Rate, Rhythm, No Edema, No Murmur, Normal Peripheral Pulses Gastrointestinal: Normal Bowel Sounds, Non Tender, Soft Extremity: Normal Inspection, Non Tender, No Pedal Edema Neurologic/Psychiatric: Alert, Oriented x3, No Motor/Sensory Deficits, Normal Mood/Affect, crisis nurse II-XII Norm as Tested Skin: Normal Color, Warm/Dry Progress/Results/Core Measures Results/Orders Lab Results Laboratory Tests Test 02/24/23 14:40 02/24/23 15:09 Range/Units White Blood Count 5.5 4.3-11.0 10^3/uL Red Blood Count 4.73 3.80-5.11 10^6/uL Hemoglobin 14.2 11.5-16.0 g/dL Hematocrit 43 35-52 % Mean Corpuscular Volume 91 80-99 fL Mean Corpuscular Hemoglobin 30 25-34 pg Mean Corpuscular Hemoglobin Concent 33 32-36 g/dL Red Cell Distribution Width 12.8 10.0-14.5 % Platelet Count 259 130-400 10^3/uL Mean Platelet Volume 9.6 9.0-12.2 fL Immature Granulocyte % (Auto) 0 % Neutrophils (%) (Auto) 52 42-75 % Lymphocytes (%) (Auto) 34 12-44 % Monocytes (%) (Auto) 10 0-12 % Eosinophils (%) (Auto) 4 0-10 % Basophils (%) (Auto) 1 0-10 % Neutrophils # (Auto) 2.8 1.8-7.8 10^3/uL Lymphocytes # (Auto) 1.8 1.0-4.0 10^3/uL Monocytes # (Auto) 0.5 0.0-1.0 10^3/uL Eosinophils # (Auto) 0.2 0.0-0.3 10^3/uL Basophils # (Auto) 0.1 0.0-0.1 10^3/uL Immature Granulocyte # (Auto) 0.0 0.0-0.1 10^3/uL Percent Immature Platelet Fraction 3.5 0.0-7.6 % D-Dimer 0.23 0.00-0.49 UG/ML Sodium Level 141 135-145 MMOL/L Potassium Level 3.9 3.6-5.0 MMOL/L Chloride Level 107 98-107 MMOL/L Carbon Dioxide Level 24 21-32 MMOL/L Anion Gap 10 5-14 MMOL/L Blood Urea Nitrogen 9 7-18 MG/DL Creatinine 0.76 0.60-1.30 MG/DL Estimat Glomerular Filtration Rate 110 BUN/Creatinine Ratio 12 Glucose Level 83 70-105 MG/DL Calcium Level 9.3 8.5-10.1 MG/DL Corrected Calcium 8.9 8.5-10.1 MG/DL Total Bilirubin 1.0 0.1-1.0 MG/DL Aspartate Amino Transf (AST/SGOT) 22 5-34 U/L Alanine Aminotransferase (ALT/SGPT) 15 0-55 U/L Alkaline Phosphatase 71 40-136 U/L Troponin I < 0.30 <0.30 NG/ML Total Protein 7.1 6.4-8.2 GM/DL Albumin 4.5 3.2-4.5 GM/DL Lipase 54 8-78 U/L Serum Test, Qualitative NEGATIVE NEGATIVE Influenza Type A (RT-PCR) Not Detected Not Detecte Influenza Type B (RT-PCR) Not Detected Not Detecte SARS-CoV-2 RNA (RT-PCR) Not Detected Not Detecte My Orders Orders - MINA STAPLETON MD Ekg Tracing (02/24/23 14:36) Cbc And Automated Diff (02/24/23 14:49) Comprehensive Metabolic Panel (02/24/23 14:49) Hcg,Qualitative Serum (02/24/23 14:49) Covid 19 Inhouse Test (02/24/23 14:49) Influenza A And B By Pcr (02/24/23 14:49) Ondansetron Injection (Ondansetron Inj (02/24/23 15:00) Lidocaine 2% Viscous 15 Ml (Xylocaine Vi (02/24/23 15:00) Antacid Suspension (Antacid Suspension (02/24/23 15:00) Chest Pa/Lat (2 View) (02/24/23 15:55) Fibrin Degradation Products (02/24/23 15:55) Troponin I [place] (02/24/23 15:55) Fentanyl Injection (Fentanyl Injection (02/24/23 16:00) Lipase (02/24/23 15:55) Ketorolac Injection (Ketorolac Injection (02/24/23 17:15) Promethazine Injection (Promethazine I (02/24/23 17:30) Medications Given in ED Vital Signs/I&O 02/24/23 02/24/23 14:35 17:36 Temp 36.9 36.0 Pulse 71 83 Resp 13 20 B/P (MAP) 113/70 (84) 114/78 Pulse Ox 100 100 O2 Delivery Room Air Room Air Blood Pressure Mean: 84 Progress Progress Note : Progress Note Patient was treated with Zofran and GI cocktail. Zofran helped her nausea but did not reduce her chest pain. Her nausea later rebounded and she was treated with Phenergan. Fentanyl was then given for her pain which helped significantly. Toradol was later added. Influenza and COVID-19 test were negative. Chest pain was evaluated with chest x-ray, D-dimer, and troponin, all of which were normal by my interpretation. All labs were reviewed and interpreted by me. CBC was normal. There was a lymphocytic predominance to the WBC differential which may indicate viral illness. CMP was unremarkable. Troponin, D-dimer, and lipase were all normal. Serum test was negative. Ultimately, the exact cause of her symptoms was not determined. I suspect she has viral illness. See discharge instructions for further discussion. Initial ECG Impression Date: Feb 24, 2023 Initial ECG Impression Time: 14:44 Initial ECG Rate: 65 Initial ECG Rhythm: Normal Sinus Initial ECG Intervals: Normal Initial ECG Impression: Normal Comment Normal sinus rhythm with no ST elevation or depression. No abnormal intervals or axis deviation. Rate is variable secondary to breathing pattern in this young patient. Diagnostic Imaging Diagonstic Imaging: Xray Plain Films/CT/US/NM/MRI: chest Comments NAME: NAY ESPITIA [facility] REC#: [id number] PT STATUS: REG ER : 1995 PHYSICIAN: MINA STAPLETON MD ADMIT DATE: 02/24/23/ER FS Draft Date of Exam:02/24/23 CHEST PA/LAT (2 VIEW) INDICATION: Chest pain. PA and lateral chest obtained at 4:05 p.m. FINDINGS: Heart and mediastinal silhouette are normal in appearance. The lungs are clear. There is no pneumothorax or pleural fluid. IMPRESSION: Negative chest. Dictated on workstation # [id number] Dict: 02/24/23 1615 Trans: 02/24/23 1618 [id number] Interpreted by: DENAE MALDONADO MD Departure Impression Primary Impression: Atypical chest pain Additional Impressions: Dizziness Nausea Disposition: HOME, SELF-CARE Condition: Improved Departure-Patient Inst. Decision time for Depature: 17:05 Referrals: NO,LOCAL PHYSICIAN (PCP/Family) Primary Care Physician Patient Instructions: Costochondritis, Chest Pain That Is Not Caused by the Heart (DC) Add. Discharge Instructions: You received a thorough work-up in the emergency room today, but no definite cause of your chest pain was identified. There was no evidence of blood clot, pneumonia, or heart problems. Possible causes of your pain could include generalized inflammation, costochondritis, viral illness, other undetermined causes, or combination. You may treat your pain with ibuprofen up to 400 mg every 6 hours as needed. Always take ibuprofen with food or milk to avoid stomach irritation. If ibuprofen causes worsening pain or stomach irritation, discontinue ibuprofen. Naproxen or brand-name Aleve could be substituted for ibuprofen. You may additionally add Tylenol (acetaminophen) up to 650 mg every 6 hours as needed for additional pain relief beyond ibuprofen or naproxen. Try to avoid activities that cause undue strain on your upper skeletal structure. If your dizziness is persistent and you would like to treat it, you may try using meclizine up to 25 mg every 6 hours as needed. Meclizine will cause drowsiness, so use with caution. Do not drive or operate machinery while on meclizine. Follow-up with your primary care provider if this pain does not resolve in 1 to 2 weeks. Return to care in the emergency room if you have pain that is not improved with ibuprofen and Tylenol, escalating pain, or develop additional symptoms such as vomiting, fever, shortness of breath, etc. All discharge instructions reviewed with patient and/or family. Voiced understanding. Scripts Ondansetron (Ondansetron Odt) 4 Mg Tab.rapdis 4 MG SL Q4H PRN for NAUSEA/VOMITING, #10 TAB Prov: MINA STAPLETON MD 02/24/23 Work/School Note: Work Release Form Date Seen in the Emergency Department: Feb 24, 2023 Return to Work: Feb 26, 2023 Restrictions: Return-No Fever (24hrs), Return-No Vomiting(24hrs) MINA STAPLETON MD Feb 24, 2023 16:46
[2023-02-24] MEDS ORDERED: KETOROLAC INJ 30 MG/ML VIAL IVP ONE (17:15)
[2023-02-24] MEDS ORDERED: ONDA4TAB11 SL (17:22)
[2023-02-24] MEDS ORDERED: PROMETHAZINE INJ 25 MG/ML VIAL IVP ONE (17:30)
[2023-02-24 17:36] VITALS: BP 114/78
== END 2023-02-24 17:36 | disposition home or self-care (01) ==
LOC: EDUNIT# 14:30 → ER FS 14:34
DX: R07.89 Other chest pain (principal); R42 Dizziness and giddiness; R11.0 Nausea; Z20.822 Contact with and (suspected) exposure to COVID-19
CPT/HCPCS: 36415; 71046; 80053; 83690; 84484; 84703; 85025; 85379; 87636; 93005

== ENCOUNTER 2023-02-26 11:36 | Emergency (ER) | payer MEDICAID ==
--- NOTE | 2023-02-26 11:45 | ED Chest Pain ---
General Chief Complaint: Chest Pain Stated Complaint: CHEST PAIN; SOB; NAUSEA History of Present Illness Date Seen by Provider: Feb 26, 2023 Time Seen by Provider: 11:40 Initial Comments 28-year-old female with no PMH, is here with complaints of sternal chest pain which has been going on for about 2 weeks. Patient was in the ER 2 days ago and had a full work-up which was all negative and was diagnosed with costochondritis. Patient states that she has exacerbation of that same type of pain from time to time every day. Patient also has associated nausea when she gets the pain. Denies fever and chills, shortness of breath, palpitations, abdominal pain, nausea and vomiting. Allergies and Home Medications Allergies Coded Allergies: No Known Drug Allergies (Unverified , 04/26/21) Patient Home Medication List Home Medication List Reviewed: Yes Calcium Carbonate (Tums) 200 Mg Calcium (500 Mg) Tab.chew, 200 MG PO PRN, (Reported) Entered as Reported by: JUANIS POSEY on 09/19/21 0314 Diphenhydramine HCl (Benadryl) 25 Mg Capsule, 25 MG PO Q6H Prescribed by: Noemi Burns on 09/18/21 1116 Famotidine (Pepcid) 20 Mg Tablet, 20 MG PO BID Prescribed by: Noemi Burns on 09/18/21 1116 Methylprednisolone (Medrol Dose pack) 4 Mg Tab, 10 MG PO UD Prescribed by: Noemi Burns on 09/20/21 0907 Metoclopramide HCl (Reglan) 10 Mg Tablet, 10 MG PO Q6H Prescribed by: Noemi Burns on 09/18/21 1116 Ondansetron (Ondansetron Odt) 4 Mg Tab.rapdis, 4 MG SL Q6H PRN for NAUSEA/VOMITING-1ST LINE Prescribed by: NICOL VOGEL on 09/19/22 1114 Ondansetron (Ondansetron Odt) 4 Mg Tab.rapdis, 4 MG SL Q4H PRN for NAUSEA/VOMITING Prescribed by: INESSA GASTON on 09/25/22 1325 Ondansetron (Ondansetron Odt) 4 Mg Tab.rapdis, 4 MG SL Q4H PRN for NAUSEA/VOMITING Prescribed by: MINA TAPIA on 02/24/23 1722 Promethazine HCl (Promethazine Tablet) 25 Mg Tablet, 25 MG PO Q6H PRN for NAUSEA/VOMITING-2ND LINE Prescribed by: NICOL VOGEL on 09/15/21 1219 Promethazine HCl (Promethazine Suppository) 25 Mg Supp.rect, 25 MG RC Q6H PRN for NAUSEA/VOMITING-3RD LINE Prescribed by: NICOL VOGEL on 09/15/21 1219 Promethazine HCl (Promethazine Suppository) 25 Mg Supp.rect, 25 MG RC Q8H PRN for NAUSEA/VOMITING-2ND LINE Prescribed by: NICOL VOGEL on 09/19/22 1114 Review of Systems Review of Systems Constitutional: no symptoms reported Cardiovascular: Chest Pain Past Pwdnige-Myqczh-Dbxjcx Hx Patient Social History Tobacco Use?: No Use of E-Cig and/or Vaping dev: No Substance use?: No Alcohol Use?: No Immunizations Up To Date First/Initial COVID19 Vaccinat: Denies Second COVID19 Vaccination Ethan: Denies Third COVID19 Vaccination Date: Denies Past Medical History Surgery/Hospitalization HX: appendectomy and ioana Surgeries: Yes Appendectomy, Gallbladder Respiratory: No Cardiac: No Neurological: Yes Seizure Disorder Reproductive Disorders: No Genitourinary: No Gastrointestinal: No Musculoskeletal: No Endocrine: No HEENT: No Cancer: No Psychosocial: No Integumentary: No Physical Exam Vital Signs Capillary Refill : Height, Weight, BMI Height: '" Weight: lbs. oz. kg; 16.00 BMI Method: General Appearance: No Apparent Distress, WD/WN, Anxious HEENT: PERRL/EOMI Neck: Full Range of Motion Respiratory: Lungs Clear, Normal Breath Sounds Cardiovascular: Regular Rate, Rhythm, No Edema, No Murmur, Other (Reproducible point tenderness over the second and third costochondral junctions bilaterally.) Gastrointestinal: Normal Bowel Sounds, Non Tender, Soft Extremity: Normal Range of Motion Neurologic/Psychiatric: Alert, Oriented x3 Skin: Normal Color Progress/Results/Core Measures Results/Orders Lab Results Laboratory Tests Test 02/26/23 11:44 Range/Units Troponin I < 0.30 <0.30 NG/ML My Orders Orders - ARNOLDO GARCIA MD Chest 1 View Ap/Pa Only (10/7/23 11:47) Troponin I Fs (02/26/23 11:53) Continuous Ekg Monitoring (02/26/23 11:53) Ekg Tracing (02/26/23 11:53) Troponin I Fs (02/26/23 12:26) Ondansetron Oral Dissolve Tab (Ondanset (02/26/23 12:44) Ondansetron Oral Dissolve Tab (Ondanset (02/26/23 12:47) Progress Progress Note : Progress Note 1. COSTOCHONDRITIS - Labs, CXR, EKG, and physician notes done on 02/24/23 reviewed, and everything was unremarkable and pt was diagnosed for costochondritis. UCG done at this visit was negative - Repeat CXR, troponin, and EKG only, to check for interval changes. Everything is negative again today. - CXR: no acute finding - Troponin: Undetectable - EKG: non-ischemic -Advised to continue ibuprofen 600 mg every 6 hours with food, also advised [id number] Lidoderm patches. Prescription given for Zofran ODT; take as needed for nausea and vomiting. -Advised to follow-up with PCP as soon as possible. -The patient was seen in the ED, and treated appropriately to presentation at a specific point in time. Patient is informed that there is a possibility that disease and illness can evolve and change in acuity rapidly or slowly after patient is discharged from the ER. Precautionary advice given to the patient for immediate return to ER if symptoms worsen or do not resolve, and to seek emergency care sooner rather than later. Pt also advised on the importance of PCP follow up and compliance with management and follow up plan with PCP and/or specialist, as this is part of the management plan. Pt verbally expressed understanding. Diagnostic Imaging Diagonstic Imaging: Xray Plain Films/CT/US/NM/MRI: chest Comments [facility], [place] NAME: NAY ESPITIA [facility] REC#: [id number] PT STATUS: REG ER : 1995 PHYSICIAN: ARNOLDO GARCIA MD ADMIT DATE: 02/26/23/ER FS Draft Date of Exam:02/26/23 CHEST 1 VIEW AP/PA ONLY EXAMINATION: Chest 1 view HISTORY: chest pain COMPARISON: 02/24/2023. FINDINGS: Heart size and pulmonary vasculature are normal. The lungs are clear without consolidation, pleural effusion, or pneumothorax. The osseous structures are intact. IMPRESSION: 1. No acute radiographic abnormality in the chest. Dictated on workstation # [id number] Dict: 02/26/23 1218 Trans: 02/26/23 1222 [id number] Interpreted by: POLO CIFUENTES DO Electronically signed by: Departure Impression Primary Impression: Costochondritis Disposition: HOME, SELF-CARE Condition: Stable Departure-Patient Inst. Referrals: NO,LOCAL PHYSICIAN (PCP/Family) Primary Care Physician Patient Instructions: Costochondritis (DC) Add. Discharge Instructions: -Advised to continue ibuprofen 600 mg every 6 hours with food, also advised [id number] Lidoderm patches. Prescription given for Zofran ODT; take as needed for nausea and vomiting. -Advised to follow-up with PCP as soon as possible. Call to make appointment - [facility]: [facility] [place] [address] All discharge instructions reviewed with patient and/or family. Voiced understanding. Scripts Ondansetron (Ondansetron Odt) 4 Mg Tab.rapdis 4 MG SL Q4H PRN for NAUSEA/VOMITING for 5 Days, #20 TAB Prov: ARNOLDO GARCIA MD 02/26/23 ARNOLDO GARCIA MD Feb 26, 2023 11:45
--- NOTE | 2023-02-26 12:22 | Diagnostic Imaging Report ---
EXAMINATION: Chest 1 view HISTORY: chest pain COMPARISON: 02/24/2023. FINDINGS: Heart size and pulmonary vasculature are normal. The lungs are clear without consolidation, pleural effusion, or pneumothorax. The osseous structures are intact. IMPRESSION: 1. No acute radiographic abnormality in the chest. Dictated by: Dictated on workstation # [id number]
[2023-02-26] MEDS ORDERED: ONDANSETRON 4 MG ORAL DISSOLVE TABLET PO STA (12:44)
[2023-02-26] MEDS ORDERED: ONDANSETRON 4 MG ORAL DISSOLVE TABLET ONE (12:47)
[2023-02-26] MEDS ORDERED: ONDA4TAB11 SL (13:14)
== END 2023-02-26 13:20 | disposition home or self-care (01) ==
LOC: EDUNIT# 11:36 → ER FS 11:38
DX: M94.0 Chondrocostal junction syndrome [Tietze] (principal); R11.2 Nausea with vomiting, unspecified; Z28.310 Unvaccinated for COVID-19
CPT/HCPCS: 36415; 71045; 84484; 93005

== ENCOUNTER 2023-02-26 19:20 | Emergency (ER) | payer MEDICAID ==
[~2023-02-26] VITALS: Ht 180.3 cm; Wt 53.0 kg
[2023-02-26] MEDS ORDERED: KETOROLAC INJ 30 MG/ML VIAL IVP STA (19:36)
--- NOTE | 2023-02-26 19:44 | ED Chest Pain ---
General Chief Complaint: Chest Wall Stated Complaint: CHEST PAIN/DIZZINESS/WEAKNESS Source: patient Exam Limitations: no limitations History of Present Illness Date Seen by Provider: Feb 26, 2023 Time Seen by Provider: 19:25 Initial Comments Here with report of persistent left-sided chest pain that radiates to her neck and does have some dizziness and feels weak. This has been going on for a few days. She was seen at [place] emergency department on 02/24/2023 as well as earlier today and work-up there did not reveal any significant findings per the patient. She was told this may be costochondritis. She did try 200 mg of ibuprofen and 500 mg of acetaminophen at about 5:00 today and pain continues. Denies vomiting but does have some nausea. States she is currently on her menstrual period. She is concerned about the persistence of this. Timing/Duration: constant, 3-4 days Severity/Quality: moderate, sharp, tightness Location: central Radiation: neck (Left-sided) Activities at Onset: none Prior CP/Workup: no prior chest pain ASA po RADIATION / CHEMISTRY TECHNICIAN: No NTG SL RADIATION / CHEMISTRY TECHNICIAN: No Associated Symptoms: No abdominal pain, No back pain; dizziness, fatigue; No fever/chills, No shortness of breath Allergies and Home Medications Allergies Coded Allergies: Iodinated Contrast Media (Verified Allergy, Unknown, Angioedema, 02/26/23) Patient Home Medication List Home Medication List Reviewed: Yes Calcium Carbonate (Tums) 200 Mg Calcium (500 Mg) Tab.chew, 200 MG PO PRN, (Reported) Entered as Reported by: JUANIS POSEY on 09/19/21 0314 Diphenhydramine HCl (Benadryl) 25 Mg Capsule, 25 MG PO Q6H Prescribed by: Noemi Burns on 09/18/21 1116 Famotidine (Pepcid) 20 Mg Tablet, 20 MG PO BID Prescribed by: Noemi Burns on 09/18/21 1116 Methylprednisolone (Medrol Dose pack) 4 Mg Tab, 10 MG PO UD Prescribed by: Noemi Burns on 09/20/21 0907 Metoclopramide HCl (Reglan) 10 Mg Tablet, 10 MG PO Q6H Prescribed by: Noemi Burns on 09/18/21 1116 Ondansetron (Ondansetron Odt) 4 Mg Tab.rapdis, 4 MG SL Q6H PRN for NAUSEA/VOMITING-1ST LINE Prescribed by: NICOL VOGEL on 09/19/22 1114 Ondansetron (Ondansetron Odt) 4 Mg Tab.rapdis, 4 MG SL Q4H PRN for NAUSEA/VOMITING Prescribed by: INESSA GASTON on 09/25/22 1325 Ondansetron (Ondansetron Odt) 4 Mg Tab.rapdis, 4 MG SL Q4H PRN for NAUSEA/VOMITING Prescribed by: MINA TAPIA on 02/24/23 1722 Ondansetron (Ondansetron Odt) 4 Mg Tab.rapdis, 4 MG SL Q4H PRN for NAUSEA/VOMITING Prescribed by: ARNOLDO GARCIA MD on 02/26/23 1314 Promethazine HCl (Promethazine Tablet) 25 Mg Tablet, 25 MG PO Q6H PRN for NAUSEA/VOMITING-2ND LINE Prescribed by: NICOL VOGEL on 09/15/21 1219 Promethazine HCl (Promethazine Suppository) 25 Mg Supp.rect, 25 MG RC Q6H PRN for NAUSEA/VOMITING-3RD LINE Prescribed by: NICOL VOGEL on 09/15/21 1219 Promethazine HCl (Promethazine Suppository) 25 Mg Supp.rect, 25 MG RC Q8H PRN for NAUSEA/VOMITING-2ND LINE Prescribed by: NICOL VOGEL on 09/19/22 1114 Review of Systems Review of Systems Constitutional: see HPI; No chills, No fever; malaise, weakness EENTM: No Nose Congestion, No Throat Pain Respiratory: Denies Cough, Denies Shortness of Air Cardiovascular: Chest Pain, Lightheadedness Gastrointestinal: Nausea; Denies Vomiting Genitourinary: No Symptoms Reported Musculoskeletal: see HPI, muscle pain Skin: no symptoms reported Psychiatric/Neurological: See HPI Past Kwceqor-Yrxoky-Vtbmaa Hx Patient Social History Tobacco Use?: No Use of E-Cig and/or Vaping dev: No Substance use?: No Alcohol Use?: No Immunizations Up To Date First/Initial COVID19 Vaccinat: Denies Second COVID19 Vaccination Ethan: Denies Third COVID19 Vaccination Date: Denies Past Medical History Surgery/Hospitalization HX: appendectomy and ioana Surgeries: Yes Appendectomy, Gallbladder Respiratory: No Cardiac: No Neurological: Yes Seizure Disorder Reproductive Disorders: No Genitourinary: No Gastrointestinal: No Musculoskeletal: No Endocrine: No HEENT: No Cancer: No Psychosocial: No Integumentary: No Family Medical History Reviewed Nursing Family Hx No Pertinent Family Hx Physical Exam Vital Signs Vital Signs - First Documented 02/26/23 19:25 Pulse 68 Resp 16 B/P (MAP) 119/90 (100) Pulse Ox 100 O2 Delivery Room Air Capillary Refill : Height, Weight, BMI Height: '" Weight: lbs. oz. kg; 16.00 BMI Method: General Appearance: No Apparent Distress, WD/WN HEENT: PERRL/EOMI, Pharynx Normal Neck: Non Tender, Supple Respiratory: Lungs Clear, Normal Breath Sounds Cardiovascular: Regular Rate, Rhythm, No Murmur Gastrointestinal: Non Tender, Soft Extremity: Normal Range of Motion, Non Tender Neurologic/Psychiatric: Alert, Oriented x3 Skin: Normal Color, Warm/Dry Progress/Results/Core Measures Results/Orders Lab Results Laboratory Tests Test 02/26/23 19:35 Range/Units White Blood Count 5.2 4.3-11.0 10^3/uL Red Blood Count 4.59 3.80-5.11 10^6/uL Hemoglobin 13.9 11.5-16.0 g/dL Hematocrit 42 35-52 % Mean Corpuscular Volume 92 80-99 fL Mean Corpuscular Hemoglobin 30 25-34 pg Mean Corpuscular Hemoglobin Concent 33 32-36 g/dL Red Cell Distribution Width 12.7 10.0-14.5 % Platelet Count 205 130-400 10^3/uL Mean Platelet Volume 9.3 9.0-12.2 fL Immature Granulocyte % (Auto) 0 % Neutrophils (%) (Auto) 53 42-75 % Lymphocytes (%) (Auto) 32 12-44 % Monocytes (%) (Auto) 11 0-12 % Eosinophils (%) (Auto) 3 0-10 % Basophils (%) (Auto) 1 0-10 % Neutrophils # (Auto) 2.8 1.8-7.8 10^3/uL Lymphocytes # (Auto) 1.6 1.0-4.0 10^3/uL Monocytes # (Auto) 0.6 0.0-1.0 10^3/uL Eosinophils # (Auto) 0.2 0.0-0.3 10^3/uL Basophils # (Auto) 0.1 0.0-0.1 10^3/uL Immature Granulocyte # (Auto) 0.0 0.0-0.1 10^3/uL Sodium Level 143 135-145 MMOL/L Potassium Level 3.7 3.6-5.0 MMOL/L Chloride Level 110 H 98-107 MMOL/L Carbon Dioxide Level 22 21-32 MMOL/L Anion Gap 11 5-14 MMOL/L Blood Urea Nitrogen 7 7-18 MG/DL Creatinine 0.84 0.60-1.30 MG/DL Estimat Glomerular Filtration Rate 98 BUN/Creatinine Ratio 8 Glucose Level 94 70-105 MG/DL Calcium Level 8.8 8.5-10.1 MG/DL Troponin I < 0.028 <0.028 NG/ML C-Reactive Protein High Sensitivity 0.02 0.00-0.50 MG/DL My Orders Orders - FRANKLYN GARCIA MD Ekg Tracing (02/26/23 19:24) Basic Metabolic Panel (02/26/23 19:36) Cbc And Automated Diff (02/26/23 19:36) Hs C Reactive Protein (02/26/23 19:36) Troponin I [place] (02/26/23 19:36) Ed Iv/Invasive Line Start (02/26/23 19:36) Ketorolac Injection (Ketorolac Injection (02/26/23 19:36) Ns Iv 1000 Ml (Ns Iv 1000 Ml) (02/26/23 21:15) Fentanyl Injection (Fentanyl Injection (02/26/23 21:01) Dexamethasone Injection (Dexamethasone (02/26/23 21:15) Ondansetron Injection (Ondansetron Inj (02/26/23 21:45) Ondansetron Injection (Ondansetron Inj (02/26/23 23:00) Medications Given in ED Current Medications Medications Dose Ordered Sig/Dorota Route Start Time Stop Time Status Last Admin Dose Admin Dexamethasone Sodium Phosphate 10 mg ONCE ONCE IV 02/26/23 21:15 02/26/23 21:16 DC 02/26/23 21:09 10 MG Ondansetron HCl 4 mg ONCE ONCE IVP 02/26/23 21:45 02/26/23 21:46 DC 02/26/23 21:48 4 MG Ondansetron HCl 4 mg ONCE ONCE IVP 02/26/23 23:00 02/26/23 23:01 DC 02/26/23 23:17 4 MG Sodium Chloride 1,000 ml @ 0 mls/hr Q0M ONCE IV 02/26/23 21:15 02/26/23 21:16 DC 02/26/23 21:08 1,000 MLS/HR Vital Signs/I&O 02/26/23 19:25 Pulse 68 Resp 16 B/P (MAP) 119/90 (100) Pulse Ox 100 O2 Delivery Room Air Progress Progress Note : Progress Note Seen and evaluated. IV, labs including CBC, CRP and BMP as well as troponin ordered. EKG ordered. I did review labs from [place] ED done earlier today and on 02/24/2023 and see no significant abnormality with negative troponin, negative D-dimer, negative , negative COVID and flu and normal chest x- rays noted. Give Toradol 30 mg IV now and see how she does and compare labs. Chest x-ray as she has had 2 chest x-rays in the last 2 days and both were normal per report and I reviewed both chest x-rays and they are normal in my opinion as well. Monitor patient. Differential diagnosis remains costochondritis, pleurisy but we will evaluate for cardiac event as well. 00: Labs reviewed and CBC is normal and CMP and troponin are also normal. Patient complains of dizziness and continued pain. Given her negative CRP and normal labs over the past couple of days, this may be more pleuritic or costochondritis. We will go ahead and give Decadron 10 mg IV now and give fentanyl 50 mcg IV with a liter of normal saline to help out with dizziness and pain. Otherwise no indication for further work-up or testing at this point. We will see how she does with the current therapies. Monitor patient. 2324: I have given Zofran 4 mg IV twice and patient is feeling like she can take some sips now. She has prescription for Zofran and is feeling a little better. She feels like she can go home. Discharged home with return precautions. Patient verbalized understanding instructions and agreement with plan. Initial ECG Impression Date: Feb 26, 2023 Initial ECG Impression Time: 19:39 Initial ECG Rate: 69 Initial ECG Rhythm: Normal Sinus Initial ECG Impression: Normal Comment Sinus rhythm with sinus arrhythmia. Normal axis. No evidence of ST elevation NE. Interpreted by me. Departure Impression Primary Impression: Chest wall pain Additional Impression: Nausea Disposition: 01 HOME, SELF-CARE Condition: Stable Departure-Patient Inst. Decision time for Depature: 23:25 Referrals: NO,LOCAL PHYSICIAN (PCP/Family) Primary Care Physician Patient Instructions: Nausea and Vomiting, Adult ED, Costochondritis, Chest Pain Add. Discharge Instructions: All discharge instructions reviewed with patient and/or family. Voiced understanding. Very light diet for the next 24 hours and then advance as tolerated. You may take [id number] Tylenol/acetaminophen 1000 mg every 8 hours as needed for pain. You may take ibuprofen 600 mg every 8 hours as needed for pain. Follow- up with your doctor on Tuesday for recheck and further evaluation. Return for worse pain, fever, vomiting, weakness, breathing problems or other concerns as needed. FRANKLYN GARCIA MD Feb 26, 2023 19:43
[2023-02-26 19:52] LABS: BASOPHILS # (AUTO) 0.1 10^3/uL (0.0-0.1); BASOPHILS % (AUTO) 1 % (0-10); EOSINOPHILS # (AUTO) 0.2 10^3/uL (0.0-0.3); EOSINOPHILS % (AUTO) 3 % (0-10); HEMATOCRIT 42 % (35-52); HEMOGLOBIN 13.9 g/dL (11.5-16.0); LYMPHOCYTES # (AUTO) 1.6 10^3/uL (1.0-4.0); LYMPHOCYTES % (AUTO) 32 % (12-44); MEAN CORPUSCULAR HEMOGLOBIN 30 pg (25-34); MEAN CORPUSCULAR HGB CONC 33 g/dL (32-36); MEAN CORPUSCULAR VOLUME 92 fL (80-99); MEAN PLATELET VOLUME 9.3 fL (9.0-12.2); MONOCYTES # (AUTO) 0.6 10^3/uL (0.0-1.0); MONOCYTES % (AUTO) 11 % (0-12); NEUTROPHILS # (AUTO) 2.8 10^3/uL (1.8-7.8); NEUTROPHILS % (AUTO) 53 % (42-75); PLATELET COUNT 205 10^3/uL (130-400); WHITE BLOOD COUNT 5.2 10^3/uL (4.3-11.0)
[2023-02-26 20:14] LABS: CHLORIDE 110 MMOL/L (98-107); POTASSIUM 3.7 MMOL/L (3.6-5.0); SODIUM 143 MMOL/L (135-145)
[2023-02-26 20:15] LABS: CALCIUM 8.8 MG/DL (8.5-10.1)
[2023-02-26 20:16] LABS: GLUCOSE 94 MG/DL (70-105)
[2023-02-26 20:17] LABS: CARBON DIOXIDE 22 MMOL/L (21-32)
[2023-02-26 20:20] LABS: CREATININE SERUM 0.84 MG/DL (0.60-1.30); GFR ESTIMATED 98
[2023-02-26 20:21] LABS: BUN/CREATININE RATIO 8
[2023-02-26] MEDS ORDERED: fentaNYL INJECTION 100 MCG/2 ML VIAL IVP STA (21:01)
[2023-02-26] MEDS ORDERED: NS IV 1000 ML 1,000 ML IV ONE (21:15)
[2023-02-26] MEDS ORDERED: dexAMETHasone INJ 10 MG/ML 1 ML VIAL IV ONE (21:15)
[2023-02-26] MEDS ORDERED: ONDANSETRON INJECTION 4 MG/2 ML (SDV) IVP ONE ×2 (21:45→23:00)
[2023-02-26 23:35] VITALS: BP 103/64
== END 2023-02-26 23:35 | disposition home or self-care (01) ==
LOC: EDUNIT# 19:20 → ER 19:23
DX: R07.89 Other chest pain (principal); R11.0 Nausea; Z28.310 Unvaccinated for COVID-19
CPT/HCPCS: 36415; 80048; 84484; 85025; 86141; 93005